=== PATIENT | female | born 1955 | race Caucasian/White ===

== ENCOUNTER 2020-03-06 03:03 | Outpatient (CLI) | payer OTHER, SELFPAY ==
[2020-03-06 18:16] LABS: SARS-CoV-2 RNA PCR Negative
== END 2020-03-06 03:04 | disposition home or self-care (01) ==
LOC: ANHCOVIDDT 03:03
PROVIDERS: PCP Family Medicine; Visit Provider Surgery
DX: Z01.812 Encounter for preprocedural laboratory examination (principal); Z20.828 Contact with and (suspected) exposure to other viral communicable diseases
CPT/HCPCS: 87635; C9803; U0003

== ENCOUNTER 2020-03-06 12:57 | Outpatient (CLI) | payer OTHER, SELFPAY ==
--- NOTE | 2020-03-06 12:59 | ECG_ITS ---
Measurements Intervals O'Brien Rate: 81 P: 51 SC: 152 QRS: -21 QRSD: 87 T: 43 QT: 389 QTc: 454 Interpretive Statements SINUS RHYTHM VOLTAGE CRITERIA FOR LVH BORDERLINE R WAVE PROGRESSION, ANTERIOR LEADS MINIMAL Q WAVES- HIGH LATERAL LEADS BASELINE ARTIFACT- I, II, III, AVR BORDERLINE ECG Electronically Signed On 03-06-2020 13:45:50 CDT by Edinson Balke D.O.
[2020-03-06 13:42] LABS: Alanine Aminotransferase 66 U/L (4-35); Albumin Level 4.7 g/dL (3.5-5.1); Alkaline Phosphatase 70 U/L (38-126); Amylase 60 U/L (30-110); Anion Gap 11 mmol/L (8-16); Aspartate Amino Transferase 42 U/L (14-36); Bilirubin,Total 0.3 mg/dL (0.2-1.3); Blood Urea Nitrogen 18 mg/dL (7-17); Calcium 9.6 mg/dL (8.4-10.2); Carbon Dioxide 29 mmol/L (22-30); Chloride 102 mmol/L (98-107); Estimated Glomerular Filt Rate > 60; Glucose 134 mg/dL (65-105); Lipase 135 U/L (23-300); Potassium 4.2 mmol/L (3.4-5.0); Sodium 142 mmol/L (137-145)
== END 2020-03-06 12:58 | disposition home or self-care (01) ==
LOC: ANHSURGERY 12:59
PROVIDERS: PCP Family Medicine; Visit Provider Surgery
DX: K81.1 Chronic cholecystitis (principal); Z01.818 Encounter for other preprocedural examination
CPT/HCPCS: 36415; 80053; 82150; 82248; 83690; 86850; 86900; 86901; 93005

== ENCOUNTER 2020-03-08 00:29 | Day surgery (SDC) | payer OTHER, SELFPAY ==
[2020-03-05 10:37] VITALS: BMI 27.3
--- NOTE | 2020-03-07 14:25 | WPDANESEPPF ---
Anes - Initial Pre Proc Eval Procedure: Operation Date: 03/08/20 10:30 Proposed Procedures p Laparoscopic Cholecystectomy - Archie Kelelr MD Date/Time: 03/07/20 14:25 Surgeon: Archie Keller MD Pre Op Diagnosis: Chronic Cholecystitis, Gallbladder polyps Patient Data Age: 65 Gender: F Height: 1.57 m Weight: 68 kg Allergies Allergy/AdvReac Type Severity Reaction Status Date / Time Penicillins Allergy Severe hives Verified 03/08/20 08:28 rosuvastatin AdvReac Unknown severe Verified 03/08/20 08:28 muscle and bone pain Home Medications Medication Instructions Recorded Confirmed Type cinnamon bark [Cinnamon] 500 mg PO DAILY 05/02/19 03/08/20 History turmeric 400 mg PO DAILY 05/02/19 03/08/20 History cholecalciferol (vitamin D3) 25 mcg PO DAILY 03/05/20 03/08/20 History [Vitamin D3] melatonin 10 mg PO HS PRN 03/05/20 03/08/20 History hydrocodone-acetaminophen 1 - 2 tablet PO Q6H PRN #7 tablet 03/08/20 Rx ketorolac 10 mg PO Q6H 4 Days #16 tablet 03/08/20 Rx Patient hx anesthesia problems: none Family hx anesthesia problems: none PMFSH Past Medical History Medical History (Updated 03/08/20 @ 06:38 by Archie Keller MD) Mitral valve prolapse Osteoarthritis Vitamin D deficiency, unspecified (01/17/18) Surgical History Surgical History Hx of lipoma Excision of neck lipoma Family History Family History Father Hypertension CAD (coronary artery disease) Mother Heart disease Hypertension Social History Social History Smoking status: Never smoker Alcohol intake: current Alcohol use details: RARELY DRINKS ALCOHOL Substance use: never Living arrangements: with family Gender identity (if verbalized by the patient): Female Spiritual care concerns: No Anes - Eval Final PreProcedure Day of Procedure 03/07/20 14:25 Patient weight: overweight Heart: regular rate and rhythm Lungs: clear to auscultation and normal air movement Airway: Mallampati scale class II Neurological: alert and oriented Last oral intake: >/= 8 hours ASA classification: II Emergent: no Anesthetic plan: proceed Anesthesia type and monitoring: general ETT and standard monitoring Informed Consent: The patient's anesthetic plan and its attendant risks and benefits were discussed with the patient/family/POA. Questions were solicited and answers provided to the satisfaction of the patient/family/POA.
[2020-03-08] VITALS (8 sets, daily range): BP systolic 106–133; BP diastolic 54–75; PULSE 59–75; RESP 14–20; TEMP 36.2–36.4; O2SAT 94–99
--- NOTE | 2020-03-08 06:35 | PM.SD ---
Same Day Admit/Disch: HPI History of Present Illness Chief complaint: Chronic Cholecystitis, Gallbladder polyps Narrative: Cecy Vale is a 65 year old female Who has had multiple episodes of postprandial right upper quadrant abdominal pain. These actually started back in May. She has changed to a low-fat diet with improvement. She had a gallbladder ultrasound in May which showed gallbladder neck polyps. She is felt to have chronic cholecystitis and is taken to surgery now for laparoscopic cholecystectomy. [facility] Past Medical History Medical History Mitral valve prolapse Osteoarthritis Vitamin D deficiency, unspecified (01/17/18) Surgical History Surgical History Hx of lipoma Excision of neck lipoma Family History Family History Father Hypertension CAD (coronary artery disease) Mother Heart disease Hypertension Social History Social History Smoking status: Never smoker Alcohol intake: current Alcohol use details: RARELY DRINKS ALCOHOL Substance use: never Living arrangements: with family Gender identity (if verbalized by the patient): Female Spiritual care concerns: No Same Day Admit/Disch: Med Pre-admit Medications Home Medications Medication Instructions Recorded Confirmed Type cinnamon bark [Cinnamon] 500 mg PO DAILY 05/02/19 03/08/20 History turmeric 400 mg PO DAILY 05/02/19 03/08/20 History cholecalciferol (vitamin D3) 25 mcg PO DAILY 03/05/20 03/08/20 History [Vitamin D3] melatonin 10 mg PO HS PRN 03/05/20 03/08/20 History hydrocodone-acetaminophen 1 - 2 tablet PO Q6H PRN #7 tablet 03/08/20 Rx ketorolac 10 mg PO Q6H 4 Days #16 tablet 03/08/20 Rx Exam Const: General: comfortable, no acute distress, alert and awake HENMT: Head: normocephalic and atraumatic Mouth: Yes Normal oral and palatal mucosa present Eyes: Conjunctivae: conjunctivae normal Pupils: Equal, round and reactive pupils present EOM: EOMs intact bilaterally Neck: Neck: normal visual inspection, no lymphadenopathy and nontender Resp: Effort & Inspection: normal respiratory effort Auscultation: clear to auscultation bilaterally Cardio: Rate: regular rate Rhythm: regular rhythm Heart sounds: no gallops, no murmurs and no rubs GI: Inspection: non-distended GI Palp: Yes Soft to palpation, No Tenderness to palpation present (GI), No Hepatomegaly present and No Splenomegaly present Skin: Lesions: no lesions Rashes: no rashes Neuro: General: no focal motor deficits and CN's II-XI intact bilaterally Cranial nerves: Yes Equal, round and reactive pupils present, Yes Bilaterally intact EOM present, Yes facial symmetry and Yes Midline tongue present Speech: normal speech Motor exam (neuro): 5/5 motor strength present throughout and Motor abnormalities not present Extrem: General: no clubbing, cyanosis or edema and edema Psych: Affect: normal affect Thought process: Normal thought process present Insight: Good insight present (Psych) DS: Summary Time Spent with Patient Time attestation: Total time spent providing and/or coordinating discharge services: DS: Admitting Diagnosis Admitting Diagnosis Admitting Diagnosis: Chronic Cholecystitis-- plan to proceed with laparoscopic cholecystectomy today under general anesthesia as an outpatient. The procedure the risks the benefits have been discussed. All questions were answered. She understands and agrees to go ahead. DS: Discharge Diagnosis Discharge Diagnosis (1) Chronic cholecystitis: Code(s): K81.1 - Chronic cholecystitis Status: Chronic (2) Gallbladder polyp: Code(s): K82.4 - Cholesterolosis of gallbladder Status: Chronic Discharge Plan Discharge Patient Disposition:
--- NOTE | 2020-03-08 06:40 | P.OP_ITS ---
Procedure Note - Detailed Date of procedure: 03/08/20 Pre-op diagnosis: Chronic Cholecystitis, Gallbladder polyps chronic cholecystitis, gallbladder polyps Post-op diagnosis: same Procedure performed: Laparoscopic cholecystectomy Description of procedure: The patient was taken to surgery and induced into general anesthesia. The abdomen was prepped and draped. Trocars were placed in the usual fashion using 0.5% Marcaine with epinephrine and applied Medical optical trocars. A 5 millimeter camera was used. The gallbladder was decompressed with a laparoscopic aspirator. The cholecystotomy was closed with a Vicryl endo-loop. The gallbladder was retracted anterosuperiorly. Adhesions to the gallbladder were taken down so that the cholecystohepatic triangle was exposed. Traction was placed on the infundibulum. The cystic duct and cystic artery were dissected out very clearly. The gallbladder was dissected off the liver at its lower 3rd. Critical view was achieved. We securely clipped and divided the cystic duct. The cystic artery was diminutive and was cauterized and divided. The gallbladder was then further retracted so that the peritoneal attachments to the liver could be divided. Once the gallbladder was freed entirely, it was placed in an Endo- Catch bag and retrieved through the 10 11 epigastric trocar site. The epigastric trocar was then replaced. We reviewed the right upper quadrant. All looked good with no evidence of bleeding or bile leakage. We evacuated CO2 and removed the trocar sleeves. Skin wounds were closed with subcuticular 4 O Monocryl skin suture. The wounds were dressed with Exofin surgical adhesive. Patient was awakened and taken to recovery in good condition. Sponge and needle counts were correct x2. Anesthesia: GETA and local (0.5% Marcaine with epinephrine) Surgeon: Archie Keller MD Grounds And Nursery Specialist: Gatito PENDLETON Estimated blood loss (mL): 5 Drains: No Packing: No Pathology: yes (Gallbladder) Complications: None Condition: stable Disposition: PACU Findings: Mild chronic inflammation, no gallstones noted. No biliary ductal dilatation, no liver abnormalities.
--- NOTE | 2020-03-08 06:42 | WPDHPUPDATE1 ---
History and Physical Update Update Date/Time: 03/08/20 06:42 History and Physical has been reviewed, including an updated exam of the patient. There are NO changes in the patient's condition. Risks, benefits, and alternatives have been discussed and questions answered. Patient agrees to proceed with procedure.
[2020-03-08] MEDS: ACETAMINOPHEN 500 MG TABLET 1000 MG PO (08:36)
[2020-03-08] MEDS: LACTATED RINGERS 1,000 ML 30 ML IV CONT ×2 (08:52→11:43)
[2020-03-08] MEDS: KETOROLAC 15 MG/ML VIAL (*BKC) IV PUSH (08:54)
--- NOTE | 2020-03-08 10:02 | SUR.PREOP ---
Up to bathroom.
[2020-03-08] MEDS: CLINDAMYCIN 900 MG/NS 50 ML 900 MG/50 ML PIGGYBACK 50 MG IVPB (10:40)
[2020-03-08] MEDS: BUPIVACAINE/EPINEPHRINE 0.5% 10 ML VIAL 20 ML INFILTRATE (11:35)
--- NOTE | 2020-03-08 13:07 | SUR.PHASEII ---
PT AWAKE AND ALERT. DENIES PAIN OR NAUSEA. EATING CRACKERS AND DRINKING WHITE SODA.
--- NOTE | 2020-03-08 13:28 | SUR.PHASEII ---
PT AWAKE AND ALERT. READY TO GO HOME
== END 2020-03-08 13:43 | disposition home or self-care (01) ==
PROVIDERS: PCP Family Medicine; Visit Provider Surgery
PROC: 0FT44ZZ Resection of Gallbladder, Percutaneous Endoscopic Approach (ICD-10-PCS; CPT 47562; principal; 2020-03-08 10:30)
DX: K81.1 Chronic cholecystitis (principal); I34.1 Nonrheumatic mitral (valve) prolapse; E55.9 Vitamin D deficiency, unspecified; M19.90 Unspecified osteoarthritis, unspecified site
CPT/HCPCS: 47562; 88304; A9270; C1713; J0330; J1885; J2250; J2370; J2405; J2704; J2710; J3010; J7120

== ENCOUNTER 2021-01-24 16:32 | Outpatient (CLI) | payer OTHER, SELFPAY ==
--- NOTE | ~2021-01-24 | MM_ITS ---
EXAMINATION: MM screening [facility] BI [facility] [place] HISTORY: Screening mammogram TECHNIQUE: Craniocaudal and mediolateral oblique 3-D tomosynthesis images were obtained and synthetic 2-D images were generated. CAD analysis was submitted and interpreted. COMPARISON: 04/11/2017, 11/03/2013 BREAST PARENCHYMAL COMPOSITION: There are scattered areas of fibroglandular density. FINDINGS: There is no evidence of suspicious mass, calcification, or architectural distortion to sugg est malignancy in either breast. There has been no suspicious interval change. IMPRESSION: 1. No mammographic evidence of malignancy. 2. Recommend routine screening mammography in one year. BI-RADS Category 1: Negative Reviewed, dictated and finalized at location A.
== END 2021-01-24 16:33 | disposition home or self-care (01) ==
LOC: ANHIMG 16:38
PROVIDERS: PCP Family Medicine; Visit Provider Family Medicine
DX: Z12.31 Encounter for screening mammogram for malignant neoplasm of breast (principal)
CPT/HCPCS: 77063; 77067

== ENCOUNTER → 2021-02-18 17:24 | Outpatient (CLI) | payer OTHER, SELFPAY ==
--- NOTE | ~2021-02-18 | XR_ITS ---
EXAMINATION: XR lumbar spine min 4V EXAM DATE: 02/18/2021 18:58 INDICATION: M54.5 - Low back pain . TECHNIQUE: Lumber spine frontal, lateral, bilateral oblique projections. Coned down frontal and lat eral L5-S1 lumbar projections for interpretation. Comparison is made to prior examination from 2009. FINDINGS: There is mild to moderate lumbar levoscoliosis. Mild to moderate L3-4 disc disease with 3 m m anterolisthesis. Mild disc disease at the other lumbar levels. The vertebral bodies are otherwise a ligned. Moderate mid and lower lumbar facet arthropathy. Mild aortic arterial sclerosis. Sacrum, sac roiliac joints, sacral arcuate lines are intact. IMPRESSION: 1. Mild to moderate lumbar levoscoliosis. 2. Moderate facet arthropathy. Reviewed, dictated and finalized at location B.
== END ==
PROVIDERS: PCP Family Medicine; Visit Provider Physician Assistant
DX: M47.816 Spondylosis without myelopathy or radiculopathy, lumbar region (principal); M41.9 Scoliosis, unspecified
CPT/HCPCS: 72110

== ENCOUNTER 2021-09-17 15:11 | Outpatient (CLI) | payer OTHER, SELFPAY ==
--- NOTE | ~2021-09-17 | DEXA_ITS ---
Bone Density Report Name: MARCIN BERMUDEZ Age: 66 Sex: Female Ethnicity: White Date of : 1955 Indication: osteopenia; height loss; prior fracture; postmenopausal Referring Provider: KEVIN GUTIERREZ Study: Bone densitometry was performed. Exam Date: September 17, 2021 Accession number: [id number] Bone Density: Region BMD T-score Z-score Classification AP Spine(L1-L4) 0.902 -1.3 0.6 Osteopenia Femoral Neck (Left) 0.547 -2.7 -1.1 Osteoporosis Total Hip (Left) 0.757 -1.5 -0.2 Osteopenia Femoral Neck (Right) 0.574 -2.5 -0.8 Osteoporosis Total Hip (Right) 0.773 -1.4 0.0 Osteopenia Total Hip Mean 0.765 -1.5 -0.1 Osteopenia World Health Organization criteria for BMD impression classify patients as: Normal (T-score at or above -1.0), Osteopenia (T-score between -1.0 and -2.5), or Osteoporosis (T-score at or below -2.5). 10-year Fracture Risk: FRAX not reported because: Some T-score for Spine Total or Hip Total or Femoral Neck at or below -2.5 Previous Exams: Region Exam Age BMD T-score BMD Change BMD Change Date g/cm2 vs Baseline vs Previous AP Spine (L1-L4) 09/17/2021 66 0.902 -1.3 0.029 (3.3%)* 0.029 (3.3%)* 01/12/2018 62 0.873 -1.6 Total Hip(Left) 09/17/2021 66 0.757 -1.5 -0.018 (-2.3%) -0.018 (-2.3%) 01/12/2018 62 0.775 -1.4 Total Hip(Right) 09/17/2021 66 0.773 -1.4 -0.025 (-3.2%) -0.025 (-3.2%) 01/12/2018 62 0.798 -1.2 *Denotes significance at 95% confidence level, LSC for AP Spine = 0.022 g/cm2, LSC for Total Hip = 0.027 g/cm2 Clinical Information Provided by Patient: Has had a low trauma fracture Has used the following medications: Vitamin D Patient maximum height was 62.5 Menopause Age: 44 Drinks caffeinated beverages Onset of menses at age 11 Number of children 2 Impression: The patient has established osteoporosis, based on the Left Femoral Neck T-score and the existence of a prior fracture. The patient has risk factors, including: previous fracture. No significant bone loss was observed. Discussion: HIGH RISK OF FRACTURE. BONE DENSITY IS UNDESIRABLY LOW AT ONE OR MORE SKELETAL SITES, CONSISTENT WITH POSTMENOPAUSAL OSTEOPOROSIS. This patient's lowest T-score, in a patient who has previously fractured, meets the World Health Organization's (WHO) criteria for severe osteoporosis. In untreated patients, the risk of osteoporotic fracture increases approximately two-fold for each 1.0 SD decrease in T-s
== END 2021-09-17 15:12 | disposition home or self-care (01) ==
PROVIDERS: PCP Family Medicine; Visit Provider Family Medicine
DX: M81.0 Age-related osteoporosis without current pathological fracture (principal); M85.88 Other specified disorders of bone density and structure, other site; E55.9 Vitamin D deficiency, unspecified; Z00.00 Encounter for general adult medical examination without abnormal findings; Z87.312 Personal history of (healed) stress fracture
CPT/HCPCS: 77080

== ENCOUNTER 2022-07-29 07:33 | Outpatient (CLI) | payer OTHER, SELFPAY ==
--- NOTE | ~2022-07-29 | MM_ITS ---
EXAMINATION: MM screening [facility] HISTORY: Screening mammogram TECHNIQUE: Craniocaudal and mediolateral oblique 3-D tomosynthesis images were obtained and synthetic 2-D images were generated. CAD analysis was submitted and interpreted. COMPARISON: 01/24/2021, 04/11/2017, 11/03/2013 bilateral screening mammogram examinations BREAST PARENCHYMAL COMPOSITION: There are scattered areas of fibroglandular density. FINDINGS: There is no evidence of suspicious mass, calcification, or architectural distortion to sugg est malignancy in either breast. There has been no suspicious interval change. IMPRESSION: 1. No mammographic evidence of malignancy. 2. Recommend routine screening mammography in one year. BI-RADS Category 1: Negative Reviewed, dictated and finalized at location A. NUT CANDY MAKER
== END 2022-07-29 07:34 | disposition home or self-care (01) ==
PROVIDERS: PCP Family Medicine; Visit Provider Family Medicine
DX: Z12.31 Encounter for screening mammogram for malignant neoplasm of breast (principal)
CPT/HCPCS: 77063; 77067

== ENCOUNTER 2023-05-11 08:06 | Day surgery (SDC) | payer OTHER, SELFPAY ==
[2023-03-19 13:43] VITALS: BMI 25.0
[2023-04-29 14:11] VITALS: BMI 29.1
[2023-05-11 09:21] VITALS: BP 173/80; PULSE 76; RESP 16; TEMP 37; O2SAT 98
--- NOTE | 2023-05-11 09:24 | P.HP_ITS ---
History of Present Illness History of Present Illness Consent: Risks, benefits, and alternatives have been discussed and questions answered. Patient agrees to proceed with procedure. Chief complaint: Z12.11 Screening Neoplasm of Colon Narrative: Cecy Vale is a 68 year old female Presents for screening colonoscopy. Patient has current weight appetite and bm are normal. patient denies abdominal pain. She has had no bleeding. Family history is noncontributory. Review of Systems Review of Systems: Review of systems noncontributory. [facility] Past Medical History Medical History Hallux rigidus, right foot Mitral valve prolapse Osteoarthritis Vitamin D deficiency, unspecified (01/17/18) Surgical History Surgical History Hx laparoscopic cholecystectomy 03/08/2020 Hx of lipoma Excision of neck lipoma Family History Family History Father Hypertension CAD (coronary artery disease) Mother Heart disease Hypertension Social History Social History Smoking status: Never smoker Alcohol intake: current Drinks per week: 0 Alcohol use details: PT STATES RARE, ONCE A MONTH OR LESS Substance use: never Substance use type: does not use Living arrangements: with family Gender identity (if verbalized by the patient): Female Spiritual care concerns: No Meds Home Medications and Allergies Home Medications Medication Instructions Recorded Confirmed Type cinnamon bark 500 mg capsule 500 mg PO DAILY 05/02/19 04/29/23 History (Cinnamon) turmeric 400 mg capsule 400 mg PO DAILY 05/02/19 04/29/23 History cholecalciferol (vitamin D3) 25 25 mcg PO DAILY 03/05/20 04/29/23 History mcg (1,000 unit) tablet (Vitamin D3) strfisoyxzqf-Hl-qtvr-minerals 1 tablet PO DAILY 07/18/20 04/29/23 History (Multiple Vitamin, Womens tablet) sodium,potassium,mag sulfates 17.5 See Rx Instructions PO .COMPLEX 04/29/23 Rx gram-3.13 gram-1.6 gram oral soln #354 mL (Suprep Bowel Prep Kit) Allergies Allergy/AdvReac Type Severity Reaction Status Date / Time Penicillins Allergy Severe hives Verified 05/11/23 09:21 cephalexin Allergy Mild Hives Verified 05/11/23 09:21 rosuvastatin AdvReac Unknown severe Verified 05/11/23 09:21 muscle and bone pain alendronate sodium AdvReac Joint Pain Verified 05/11/23 09:21 [From Fosamax] Exam Narrative: Physical exam reveals patent vital signs stable. HEENT exam is unremarkable. Patient is anicteric. Is are clear to auscultation and heart is without murmur or extra sounds. Abdomen bowel sounds are present soft nontender with no organomegaly. Digital external rectal exam is normal. Assessment and Plan Assessment and plan (1) Encounter for screening colonoscopy: Code(s): Z12.11 - Encounter for screening for malignant neoplasm of colon Status: Acute Assessment and Plan: Presents for screening colonoscopy. Appears to be at average risk for colon polyps.
[2023-05-11] MEDS: LACTATED RINGERS 1,000 ML 150 ML IV CONT (09:33)
--- NOTE | 2023-05-11 09:42 | WPDANESEPPF ---
Anes - Initial Pre Proc Eval Procedure: Operation Date: 05/11/23 10:30 Proposed Procedures p Screening Colonoscopy - Gatito Car MD Date/Time: 05/11/23 09:42 Surgeon: Gatito Car MD Pre Op Diagnosis: Z12.11 Screening Neoplasm of Colon Patient Data Age: 68 Gender: F Height: 1.55 m Weight: 71.1 kg Last Vital Signs Temp 37.0 C 05/11/23 09:21 Pulse 76 05/11/23 09:21 Resp 16 05/11/23 09:21 BP 173/80 H 05/11/23 09:21 Pulse Ox 98 05/11/23 09:21 O2 Del Method Room Air 05/11/23 09:21 Allergies Allergy/AdvReac Type Severity Reaction Status Date / Time Penicillins Allergy Severe hives Verified 05/11/23 09:21 cephalexin Allergy Mild Hives Verified 05/11/23 09:21 rosuvastatin AdvReac Unknown severe Verified 05/11/23 09:21 muscle and bone pain alendronate sodium AdvReac Joint Pain Verified 05/11/23 09:21 [From Fosamax] Home Medications Medication Instructions Recorded Confirmed Type cinnamon bark 500 mg capsule 500 mg PO DAILY 05/02/19 04/29/23 History (Cinnamon) turmeric 400 mg capsule 400 mg PO DAILY 05/02/19 04/29/23 History cholecalciferol (vitamin D3) 25 25 mcg PO DAILY 03/05/20 04/29/23 History mcg (1,000 unit) tablet (Vitamin D3) vogncqfcouei-Aw-ptdi-minerals 1 tablet PO DAILY 07/18/20 04/29/23 History (Multiple Vitamin, Womens tablet) sodium,potassium,mag sulfates 17.5 See Rx Instructions PO .COMPLEX 04/29/23 Rx gram-3.13 gram-1.6 gram oral soln #354 mL (Suprep Bowel Prep Kit) Patient hx anesthesia problems: none Family hx anesthesia problems: none Results Review: All pre-operative results and documents have been reviewed as part of the pre-operative evaluation. REPLACED BY [facility] Past Medical History Medical History Hallux rigidus, right foot Mitral valve prolapse Osteoarthritis Vitamin D deficiency, unspecified (01/17/18) Surgical History Surgical History Hx laparoscopic cholecystectomy 03/08/2020 Hx of lipoma Excision of neck lipoma Family History Family History Father Hypertension CAD (coronary artery disease) Mother Heart disease Hypertension Social History Social History Smoking status: Never smoker Alcohol intake: current Drinks per week: 0 Alcohol use details: PT STATES RARE, ONCE A MONTH OR LESS Substance use: never Substance use type: does not use Living arrangements: with family Gender identity (if verbalized by the patient): Female Spiritual care concerns: No Anes - Eval Final PreProcedure Day of Procedure 05/11/23 09:42 Patient weight: overweight Heart: regular rate and rhythm Lungs: clear to auscultation Airway: Mallampati scale class II Neurological: alert and oriented Last oral intake: >/= 8 hours ASA classification: II Emergent: no Anesthetic plan: proceed Anesthesia type and monitoring: general GIVS and standard monitoring Results Review: All pre-operative results and documents have been reviewed as part of the pre-operative evaluation. Informed Consent: The patient's anesthetic plan and its attendant risks and benefits were discussed with the patient/family/POA. Questions were solicited and answers provided to the satisfaction of the patient/family/POA.
[2023-05-11 10:06] VITALS: BP 126/69; PULSE 69; RESP 20; O2SAT 97
[2023-05-11 10:16] VITALS: BP 122/76; PULSE 66; RESP 16; O2SAT 99
--- NOTE | 2023-05-11 10:17 | WPDANESPN ---
Anes - Prog Note Post-Op Date/Time: 05/11/23 10:17 Cardiovascular status: normal Respiratory status: normal Airway patency: baseline Mental status: baseline Post-Op hydration status: normal Vital Signs: Last Vital Signs Temp 37.0 C 05/11/23 09:21 Pulse 69 05/11/23 10:09 Resp 20 05/11/23 10:09 BP 126/69 05/11/23 10:09 Pulse Ox 97 05/11/23 10:09 O2 Del Method Room Air 05/11/23 10:09 Pain Score (VAS): 0/10 I/O: Intake & Output 05/10/23 05/11/23 05/11/23 23:59 07:59 15:59 Intake Total 300 Balance 300 Patient Feedback: Patient satisfied with anesthetic care.
[2023-05-11 10:26] VITALS: BP 125/66; PULSE 66; RESP 15; O2SAT 98
== END 2023-05-11 10:47 | disposition home or self-care (01) ==
PROVIDERS: PCP Family Medicine; Visit Provider Internal Medicine Gastroenterology
PROC: 0DJD8ZZ Inspection of Lower Intestinal Tract, Via Natural or Artificial Opening Endoscopic (ICD-10-PCS; CPT 45378; principal; 2023-05-11 10:30)
DX: Z12.11 Encounter for screening for malignant neoplasm of colon (principal); K64.8 Other hemorrhoids
CPT/HCPCS: 45378

== ENCOUNTER 2024-05-16 09:21 | Outpatient (CLI) | payer OTHER, SELFPAY ==
--- NOTE | ~2024-05-16 | XR_ITS ---
[id number] Ordering provider: Jose Aguilar APRN History: . M25.562 - Pain in left knee . Comparison: None. FINDINGS: BONES: No acute fracture or dislocation. JOINT SPACES: Normal. SOFT TISSUES: Normal. IMPRESSION: No acute osseous abnormality left knee. Reviewed, dictated and finalized at location A. ER EXTRUSION MACHINE OPERATOR
--- NOTE | ~2024-05-16 | XR_ITS ---
[id number] Ordering provider: Jose Aguilar APRN History: . M25.561 - Pain in right knee . Comparison: None. FINDINGS: BONES: No acute fracture or dislocation. JOINT SPACES: Normal. SOFT TISSUES: Normal. IMPRESSION: No acute osseous abnormality right knee. Reviewed, dictated and finalized at location A. ECTIONS NURSE
--- NOTE | ~2024-05-16 | XR_ITS ---
XR hand LT 2V Ordering provider: Jose Aguilar APRN History: . M79.642 - Pain in left hand . Comparison: None. FINDINGS: BONES: No acute fracture or dislocation. JOINT SPACES: Osteoarthritic changes of the first carpometacarpal joint. SOFT TISSUES: Unremarkable. IMPRESSION: No acute osseous abnormality left hand. Reviewed, dictated and finalized at location A. OLEER PACKER
== END 2024-05-16 09:22 | disposition home or self-care (01) ==
LOC: GOSHIMG 09:22
PROVIDERS: PCP Family Medicine; Visit Provider Student in an Organized Health Care Education/Training Program
DX: M25.562 Pain in left knee (principal); M25.561 Pain in right knee; M79.642 Pain in left hand
CPT/HCPCS: 73120; 73560

== ENCOUNTER 2024-06-08 13:52 | Outpatient (CLI) | payer OTHER, SELFPAY ==
--- NOTE | ~2024-06-08 | MM_ITS ---
EXAMINATION: MM screening [facility] BI w [facility] HISTORY: Screening TECHNIQUE: Craniocaudal and mediolateral oblique 3-D tomosynthesis images were obtained and synthetic 2-D images were generated. CAD analysis was submitted and interpreted. COMPARISON: Comparison to multiple prior studies sequentially, with oldest reviewed study dated 04/01. BREAST PARENCHYMAL COMPOSITION: Not dense: There are scattered areas of fibroglandular density. FINDINGS: There is a low-density asymmetry superiorly in the right breast partially obscured by fibro glandular content. This is not confirmed on the CC view. The left breast is stable without evidence f or malignancy. IMPRESSION: 1. Focal right breast asymmetry superiorly in the right breast on MLO view. 2. Additional mammographic views and possible breast ultrasound are recommended. BI-RADS Category 0: Incomplete: Needs additional imaging evaluation. Reviewed, dictated and finalized at location B. LE BUSINESS INTELLIGENCE DEVELOPER IMPRESSION: 1. Focal right breast asymmetry superiorly in the right breast on MLO view. 2. Additional mammographic views and possible breast ultrasound are recommended . BI-RADS Category 0: Incomplete: Needs additional imaging evaluation.
== END 2024-06-08 13:53 | disposition home or self-care (01) ==
LOC: ANHIMG 13:54
PROVIDERS: PCP Family Medicine; Visit Provider Family Medicine
DX: Z12.31 Encounter for screening mammogram for malignant neoplasm of breast (principal); R92.8 Other abnormal and inconclusive findings on diagnostic imaging of breast
CPT/HCPCS: 77063; 77067

== ENCOUNTER 2024-06-13 08:16 | Outpatient (CLI) | payer OTHER, SELFPAY ==
--- NOTE | ~2024-06-13 | MM_ITS ---
EXAMINATION: MM diagnostic [facility] RT w [place] HISTORY: Right breast mass TECHNIQUE: Additional 3-D tomosynthesis images of the right breast were performed and synthetic 2-D i mages were generated. CAD analysis was submitted and interpreted. COMPARISON: 06/08/2024 BREAST PARENCHYMAL COMPOSITION:Not Dense. There are scattered areas of fibroglandular density. FINDINGS: Marker was placed at the right breast, which corresponds with the nodular asymmetry at the upper right breast. This persists on spot compression views. No other mass or distortion seen. No nimo picious mammographic ossification. IMPRESSION: Nodular asymmetry of the right breast corresponds with a skin mole. No evidence for malignancy. BI-RADS Category 2: Benign finding(s). Reviewed, dictated and finalized at location . C WEB DEVELOPER
== END 2024-06-13 08:17 | disposition home or self-care (01) ==
LOC: MICIMG 08:17
PROVIDERS: PCP Family Medicine; Visit Provider Family Medicine
DX: R92.8 Other abnormal and inconclusive findings on diagnostic imaging of breast (principal)
CPT/HCPCS: 77061; 77065; G0279

== ENCOUNTER 2024-07-22 10:30 | Outpatient (RCR) | payer OTHER, SELFPAY ==
--- NOTE | 2024-06-21 10:57 | OPREHPOC ---
Outpatient Therapy Plan of Care This is a Multidisciplinary Plan of Care that may contain components documented by all disciplines (PT, OT, and ST.) PT Problem 1 PT Problem #1 Knowledge Deficit PT Goal 1 Goal / Goal Update [place] with HEP Target Visit 4 PT Goal 2 Goal / Goal Update Report no pain greater than 2/10 for 2 weeks Target Visit 8 PT Problem 2 PT Problem #2 Impaired Range of Motion PT Goal 1 Goal / Goal Update 1. Achieve 10+ degree of ashleigh hip extension for improved terminal stance of gait 2. Achieve 10+ degree of ashleigh ankle dorsiflexion for improved terminal stance of gait Target Visit 8 PT Problem 3 PT Problem #3 Impaired Strength PT Goal 1 Goal / Goal Update Improve ashleigh hip abduction strength to 4/5 to improve lateral stability with gait and transfers Target Visit 8 PT Problem 4 PT Problem #4 Impaired Gait PT Goal 1 Goal / Goal Update Patient will ambulate with even stride length bilaterally Target Visit 8
--- NOTE | 2024-06-21 10:57 | PTOPEVAL1 ---
Assessment and note entered by Sadiq Posey, PT Evaluation Information Assessment Status Evaluation ICD-10 Condition Codes (PT) Pain in right knee M25.561,Pain in left knee M25. 562 Onset May 2024 Subjective Information Reports that she was having a lot of trouble in May with ashleigh knees and tenderness. She likes to walk and when she gets on the treadmill. She never had swelling or warmness or injury that she knows of. She did a lot of ladder work around [place]. Reports that she is currently having some pain in her right hip as well. She is traditionally a right side sleeper. She gets pain throughout the night. She would like to return to walking on treadmill for exercise. Reported Pain Level Pain Score 1: Self Report Assessment PT Clinical Summary Patient presents with poor hip strength and mobility. She also presents with gastrocnemius tightness with shortened stride with gait pattern and trunk shift. Structurally, her knees appear to be in good condition, but the ankle and hip mobility limitations are likely increasing stress on knee joint motion and causing patellar tracking issues. Patient will benefit from skilled therapy to address these deficits and improve mobility, gait and hip/core strength. Plan of Care Interventions Electrical Stimulation,Gait Training,Hot Pack/Cold Pack,Manual Therapy,Neuro Re-education, Therapeutic Activities,Therapeutic Exercise PT Services Indicated Yes Treatment Frequency and 2x/week for 8 visits Duration These treatments will address the objective and functional deficits as defined above. The patient will be advanced safely and appropriately in order for the patient to progress towards his/her prior level of function. Additional exercises will be introduced and as well as a comprehensive home exercise program upon discharge, if needed, ?to ensure carryover of functional gains achieved in the clinic. This treatment plan has been reviewed and agreement upon by the patient.
--- NOTE | 2024-07-22 11:23 | PTOPDC ---
Assessment and note entered by Sadiq Posey, PT Evaluation Information Assessment Status Discharge ICD-10 Condition Codes (PT) Pain in right knee M25.561,Pain in left knee M25. 562 Onset May 2024 Subjective Information Reports that overall she has been doing better. She had some minor pain in the knee and hip last night but it was short lived. Feels comfortable currently with her HEP and feels that she has seen significant improvement. Reported Pain Level Pain Score 0: Self Report Pain Score 0: Self Report Assessment PT Clinical Summary Patient has seen significant improvement in all objective measures this date. Overall pain has been improved, gait has seen even progression, and strength is improved. She will continue to benefit from independent performance of HEP to continue to work on knee and hip stability. Plan of Care PT Services Indicated Yes
== END 2024-07-25 10:00 | disposition home or self-care (01) ==
LOC: ANHGOSHPT 10:30
PROVIDERS: PCP Family Medicine; Visit Provider Student in an Organized Health Care Education/Training Program
DX: M25.562 Pain in left knee (principal); M25.561 Pain in right knee
CPT/HCPCS: 97110; 97161; 97530

== ENCOUNTER 2024-09-16 13:39 | Outpatient (CLI) | payer OTHER, SELFPAY ==
--- NOTE | ~2024-09-16 | DEXA_ITS ---
Bone Density Report Name: MARCIN BERMUDEZ Age: 69 Sex: Female Ethnicity: White Date of : 1955 Indication: osteopenia; height loss; inflammatory bowel disease; Referring Provider: KEVIN GUTIERREZ Study: Bone densitometry was performed. Exam Date: September 16, 2024 Accession number: [id number] Bone Density: Region BMD T-score Z-score Classification AP Spine(L1-L4) 0.877 -1.5 0.6 Osteopenia Femoral Neck (Left) 0.532 -2.9 -1.0 Osteoporosis Total Hip (Left) 0.749 -1.6 -0.1 Osteopenia Femoral Neck (Right) 0.512 -3.0 -1.2 Osteoporosis Total Hip (Right) 0.774 -1.4 0.2 Osteopenia Total Hip Mean 0.762 -1.5 0.1 Osteopenia World Health Organization criteria for BMD impression classify patients as: Normal (T-score at or above -1.0), Osteopenia (T-score between -1.0 and -2.5), or Osteoporosis (T-score at or below -2.5). 10-year Fracture Risk: FRAX not reported because: Some T-score for Spine Total or Hip Total or Femoral Neck at or below -2.5 Previous Exams: Region Exam Age BMD T-score BMD Change BMD Change Date g/cm2 vs Baseline vs Previous AP Spine (L1-L4) 09/16/2024 69 0.877 -1.5 0.004 (0.4%) -0.025 (-2.7%) 09/17/2021 66 0.902 -1.3 0.029 (3.3%)* 0.029 (3.3%)* 01/12/2018 62 0.873 -1.6 Total Hip(Left) 09/16/2024 69 0.749 -1.6 -0.026 (-3.4%) -0.008 (-1.1%) 09/17/2021 66 0.757 -1.5 -0.018 (-2.3%) -0.018 (-2.3%) 01/12/2018 62 0.775 -1.4 Total Hip(Right) 09/16/2024 69 0.774 -1.4 -0.024 (-3.0%) 0.002 (0.2%) 09/17/2021 66 0.773 -1.4 -0.025 (-3.2%) -0.025 (-3.2%) 01/12/2018 62 0.798 -1.2 *Denotes significance at 95% confidence level, LSC for AP Spine = 0.022 g/cm2, LSC for Total Hip = 0.027 g/cm2 Clinical Information Provided by Patient: Has used the following medications: Fosamax (i.e. alendronate), Vitamin D, Calcium Has the following medical conditions: Inflammatory bowel diseases Patient maximum height was 62 Menopause Age: 44 Drinks caffeinated beverages Onset of menses at age 11 Number of children 2 Impression: The patient has osteoporosis, based on the Right Femoral Neck T-score. The BMD for the AP Spine (L1-L4) decreased, changing by -2.7% since the last DXA exam. Discussion: INCREASED RISK OF FRACTURE. BONE DENSITY IS UNDESIRABLY LOW AT ONE OR MORE SKELETAL SITES, CONSISTENT WITH POSTMENOPAUSAL OSTEOPOROSIS. This patient's lowest T-score meets the World Health Organization's (WHO) criteria for osteoporosis at one or more sites (T-score -2.5 or below). In untreated patients, the risk of osteoporotic fracture increases approximately two-fold for each 1.0 SD decrease in T-score. Low bone density is not the only risk factor for fracture; also consider factors such as patient's age, frailty or poor health, risk of falling, risk of injury, previous osteoporotic fracture, family history of osteoporosis, cigarette smoking, low body weight, etc. Not everyone with low bone mineral density has osteoporosis; osteomalacia and other metabolic bone disorders should also be considered. Patients who have osteoporosis should be evaluated for specific diseases and conditions (secondary causes) that may cause or contribute to bone loss. The [place] [employer]ocrinologists (AACE) and National Osteoporosis Foundation (NOF) recommend pharmacologic intervention for all postmenopausal women whose T-score is in this range. The patient should follow a healthful lifestyle (good nutrition with adequate calcium and vitamin D, and appropriate weight-bearing exercise). Follow-Up: Consider a repeat BMD and Vertebral Fracture Assessment (VFA) exam in 2 years or sooner if medically necessary, to reassess this patient's status. Reported by: MARYSE on 09/16/2024 2:21:00 PM. Reviewed, dictated and finalized at location [facility]
--- OUTSIDE RECORDS SUMMARY | 2024-09-16 13:44 | XMS_ITS | Referral Summary ---
Author Organization [facility] Address [address] [place] [address] Care Team Providers Care Wall Taper Name Role Phone Twyla Song MD Primary Care Provider + Encounters Date Type Department Care Team Description 08/21/2024 10:05 AM CDT - 08/23/2024 2:42 PM CDT Hospital Encounter [facility] [address] [place] [address] Akbar Mcdaniel MD Dehaan, MD Matheus Brown, Petra Gayle MD Perforation of sigmoid colon due to diverticulitis (Primary Dx); Sepsis due to coliform organism (HCC) [A41.59]; Primary hypertension [I10]; Metabolic acidemia [E87.20]; Anemia, unspecified type [D64.9] Discharge Disposition: Discharge to home or self care 08/22/2024 Telephone [facility] [address] [place] [address] Leilani Garza, OD from Last 3 Months Allergies Active Allergy Reactions Criticality Noted Date Comments Hydrocodone Hives,Nausea only High 08/09/2018 Penicillins Hives Medium Medications cholecalcifero l (VITAMIN D-3) 2,000 unit tabletIndicati ons:Osteoporos is,Vitamin D Deficiency Take 1 tablet (2,000 Units total) by mouth daily Active turmeric root extract 500 mg capsuleIndicat ions:Supplemen t Take 1 tablet by mouth daily Active cinnamon bark 500 mg capsuleIndicat ions:Supplemen t Take 1 capsule (500 mg total) by mouth daily Active naproxen (ANAPROX,ALEVE ) 220 mg tabletIndicati ons:Anti-infla mmatory,Pain Take 1 tablet (220 mg total) by mouth 2 (two) times a day as needed for pain Active BIOTIN ORALIndication s:Hair skin nails Take 1 tablet by mouth daily Active docosahexaenoi c acid/epa (FISH OIL ORAL)Indicatio ns:Supplement Take 1 tablet/capsule by mouth daily Active ezetimibe (ZETIA) 10 mg tablet Take 1 tablet (10 mg total) by mouth nightly Active losartan (COZAAR) 25 mg tablet Take 1 tablet (25 mg total) by mouth nightly Active pseudoephedrin e ER (SUDAFED) 120 mg 12 hr tabletIndicati ons:Nasal Congestion Take 1 tablet (120 mg total) by mouth daily as needed for congestion 08/22/19 25 Discontinu ed(Error) ciprofloxacin (CIPRO) 500 mg tabletIndicati ons:Abdominal/ Pelvic Infection Take 1 tablet (500 mg total) by mouth 2 (two) times a day for 10 doses 10 tablet 5 08/29/19 metroNIDAZOLE (FLAGYL) 500 mg tabletIndicati ons:Abdominal/ Pelvic Infection Take 1 tablet (500 mg total) by mouth 3 (three) times a day for 15 doses 15 tablet 5 08/29/19 Active Problems Problem Noted Date Diagnosed Date Anemia 08/23/2024 Perforation of sigmoid colon due to diverticulit is 08/22/2024 Metabolic acidemia 08/22/2024 Acute diverticulitis 08/21/2024 Sepsis due to coliform organism 08/21/2024 Primary hypertension 08/21/2024 Hypercholesterolemia 08/21/2024 Myogenic ptosis of eyelid of both eyes 3 Assessment & Plan (08/30/2023 8:47 PM CDT): Cecy Vale is doing well after Repair Ptosis; Bilateral Upper Lid - Bilateral on 07/03/2023. She demonstrates excellent healing and has been released from my care and will follow up as needed. She has been instructed to continue comprehensive eye care with Dr. Garza. Assessment & Plan (05/29/2023 10:03 PM [employer]): Bilateral upper eyelid ptosis with symptomatic visual obstruction. Risks, benefits and alternatives were discussed. Risks of surgery included but were not limited to pain, infection, bleeding, scarring, eyelid asymmetry, need for additional procedures, anesthetic morbidity. Following this discussion, the patient wishes to proceed with bilateral upper eyelid ptosis repair. We will schedule this in the near future. Peripheral visual field defect of both eyes 05/01 Dermatochalasis of both upper eyelids 02/28/2021 Assessment & Plan (04/02/2023 11:25 AM CDT): Visually sig, refer for oculoplastics eval Assessment & Plan (02/28/2021 4:43 PM CDT): Pt would like fu with Dr Berkowitz Glaucoma suspect of both eyes 10/27/2018 Assessment & Plan (04/05/2024 1:10 PM [employer]): Large phys CDR both eyes (OU) - normal/stable RNFL both eyes (OU) Acceptable intraocular pressure (IOP) both eyes (OU) Thick CCT ou Low risk, optic nerve (ON) oct 1 year Assessment & Plan (04/02/2023 11:19 AM CDT): Large phys CDR both eyes (OU) - normal/stable RNFL both eyes (OU) Acceptable intraocular pressure (IOP) both eyes (OU) Thick CCT ou Low risk, optic nerve (ON) oct 1 year Assessment & Plan (02/28/2021 4:42 PM CDT): Stable testing Assessment & Plan (10/27/2018 11:22 AM CDT): Normal RNFL both eyes (OU) Large physiololgic disc Thick CCT both eyes (OU) Full visual field (VF) both eyes (OU) Fam oc hx Age-related nuclear cataract of both eyes 2018 Assessment & Plan (04/05/2024 1:10 PM [employer]): NVS, monitor Assessment & Plan (04/02/2023 9:41 AM CDT): NVS, monitor Assessment & Plan (02/28/2021 4:43 PM CDT): NVS, monitor Assessment & Plan (10/27/2018 11:23 AM CDT): Not visually significant, monitor Lipoma of neck 06/25/2018 Overview (06/25/2018): Added automatically from request for surgery [id number] Heart murmur 10/17/2013 Social History Tobacco Use Types Packs/Day Years Used Date Smoking Tobacco: Never Passive Smoke Exposure: Past Smokeless Tobacco: Never Alcohol Use Standard Drinks/Week Comments No 0 (1 standard drink = 0.6 oz pur e alcohol) AUDIT-C Answer Date Recorded Q1: How often do you have a drink containing alcohol? Never 07/03/2023 Q2: How many drinks containi ng alcohol do you have on a typical day when you are drinking? Patient does not drink Q3: How often do you have si x or more drinks on one occasion? Never 07/03/2023 Personal Safety Answer Date Recorded Have you ever been in or are you currently in a harmful physical or emotional relationship or is someone making you feel afraid or unsafe? Denies 08/21/2024 Comments No Sex and Gender Information Value Date Recorded Sex Assigned at Not on file Legal Sex Female 12:28 PM [employer] Gender Identity Female 07/03/2023 8:53 AM [employer] Sexual Orientation Not on file Last Filed Vital Signs Vital Sign Reading Time Taken Comments Blood Pressure 158/73 08/23/2024 1:03 PM CDT Pulse 75 08/23/2024 1:03 PM CDT Temperature 37 C (98.6 F) 08/23/2024 1:03 PM CDT Respiratory Rate 18 08/23/2024 1:03 PM CDT Oxygen Saturation 98% 08/23/2024 1:03 PM CDT Inhaled Oxygen Concentration - - Weight 70.7 kg (155 lb 14.4 oz) 08/21/2024 3:15 PM CDT Height 154.9 cm (5' 1 ) 08/21/2024 3:15 PM CDT Body Mass Index 29.46 08/21/2024 3:15 PM CDT Plan of Treatment Not on file Procedures Procedure Name Priority Date/Time Associated Diagnosis Comments EGFR Routine 08/23/2024 12:33 AM CDT DIFFERENTIAL AUTO Routine 08/23/2024 12: 33 AM CDT CBC WITH AUTO DIFFERENTIAL Routine 08/23/2024 12:33 AM CDT MAGNESIUM Routine 08/23/2024 12:33 AM CDT RENAL FUNCTION PANEL Routine 08/23/2024 12:33 AM CDT POCT GLUCOSE DEVICE Routine 08/22/2024 1 2:44 PM CDT POCT GLUCOSE DEVICE Routine 08/22/2024 3 :01 AM CDT EGFR Routine 08/22/2024 12:53 AM CDT DIFFERENTIAL AUTO Routine 08/22/2024 12: 53 AM CDT PHOSPHORUS Routine 08/22/2024 12:53 AM CDT MAGNESIUM Routine 08/22/2024 12:53 AM CDT COMPREHENSIVE METABOLIC PANEL Routine 08/22/2024 12:53 AM CDT CBC WITH AUTO DIFFERENTIAL Routine 08/22/2024 12:[address] ABDOMEN PELVIS W CONTRAST ED 08/21/2024 11:21 AM CDT BLOOD CULTURE Routine 08/21/2024 10:59 AM CDT BLOOD CULTURE Routine 08/21/2024 10:59 AM CDT MANUAL DIFFERENTIAL STAT 08/21/2024 1 0:20 AM CDT EGFR STAT 08/21/2024 10:20 AM CDT TYPE AND SCREEN STAT 08/21/2024 10:20 AM CDT SEPSIS LACTATE WITH REFLEX STAT 08/21/2024 10:20 AM CDT COMPREHENSIVE METABOLIC PANEL STAT 08/21/2024 10:20 AM CDT CBC WITH AUTO DIFFERENTIAL STAT 08/21/2024 10:20 AM CDT ECG 12-LEAD STAT 08/21/2024 10:08 AM CDT from Last 3 Months Results * eGFR (08/23/2024 12:33 AM CDT) eGFR >90 >=60 mL/min/1. 73 m2 Comment: Interpretive Data Reference Interval Normal >/= 90 mL/min/1.73m2 Mildly decreased* 60 - 89 mL/min/1.73m2 Mildly to moderately decreased 45 - 59 mL/min/1.73m2 Moderately to severely decreased 30 - 44 mL/min/1.73m2 Severely decreased 15 - 29 mL/min/1.73m2 Kidney Failure < 15 mL/min/1.73m2 *Relative to young adult level Estimated glomerular filtration rate is determined by the 2020 CKD-EPI equation recommended by the National Kidney Foundation (A Unifying Approach to GFR Estimation: Recommendations of the NKF-ASK Task Force on Reassessing the Inclusion of Race in Diagnosing Kidney Disease, JASN 202). The CKD-EPI equation should not be used for patients with unstable renal function and has not been validated in children and those over 70. Current interpretive data was last reviewed 2021. Blood 08/23/2024 12:3 3 AM CDT 08/23/2024 1:29 AM CDT Petra Jarvis MD LAB BLOOD ORDERABLES Final Result [facility] [address] Department of Laboratories [place], [place] [id number] * (ABNORMAL) Differential, auto (08/23/2024 12:33 AM CDT) Neutrophil abs 5.6 1.5 - 6.5 K/cumm Imm gran abs 0.0 0.0 - 0.1 K/cumm [facility] Lymphocyte abs 2.4 0.8 - 3.3 K/cumm [facility] Monocyte abs 1.0(H) 0.2 - 0.8 K/cumm [facility] Eosinophil abs 0.1 0.0 - 0.5 K/cumm [facility] Basophil abs 0.1 0.0 - 0.1 K/cumm [facility] Neutrophil pct 60.7 % [facility] Comment: Interpretive Data Percent cell count reference ranges are not reported, since discordance with absolute values may lead to misinterpretation of CBC data. Current Interpretive Data was last revised on 2017. Imm gran pct 0.2 % [facility] Comment: Interpretive Data Percent cell count reference ranges are not reported, since discordance with absolute values may lead to misinterpretation of CBC data. Current Interpretive Data was last revised on 2017. Lymphocyte pct 26.2 % [facility] Comment: Interpretive Data Percent cell count reference ranges are not reported, since discordance with absolute values may lead to misinterpretation of CBC data. Current Interpretive Data was last revised on 2017. Monocyte pct 10.9 % [facility] Comment: Interpretive Data Percent cell count reference ranges are not reported, since discordance with absolute values may lead to misinterpretation of CBC data. Current Interpretive Data was last revised on 2017. Eosinophil pct 1.5 % [facility] Comment: Interpretive Data Percent cell count reference ranges are not reported, since discordance with absolute values may lead to misinterpretation of CBC data. Current Interpretive Data was last revised on 2017. Basophil pct 0.5 % [facility] Comment: Interpretive Data Percent cell count reference ranges are not reported, since discordance with absolute values may lead to misinterpretation of CBC data. Current Interpretive Data was last revised on 2017. Blood 08/23/2024 12:3 3 AM CDT 08/23/2024 1:29 AM CDT Petra Jarvis MD LAB BLOOD ORDERABLES Final Result Performing Organization Address City/[facility]/ZIP Co de Phone Number [facility] [address] [place] [address] * (ABNORMAL) CBC with auto differential (08/23/2024 12:33 AM CDT) WBC 9.3 3.8 - 9.9 K/cumm Hgb 11.3(L) 11.9 - 15.5 g/dL [facility] Hct 34.5(L) 35.6 - 45.5 % [facility] Plt 244 150 - 400 K/cumm [facility] MPV 11.3 9.1 - 12.[address] [facility] RBC 3.65(L) 3.90 - 5.20 M/cumm [facility] MCV 94.5 81.3 - 96.[address] [facility] MCH 31.0 27.1 - 33.[address] [facility] MCHC 32.8 32.3 - 35.7 g/dL [facility] RDW CV 13.0 11.1 - 14.9 % [facility] RDW SD 45.1 35.7 - 48.[address] [facility] NRBC abs 0.00 0.00 - 0.01 K/cumm [facility] Blood 08/23/2024 12:3 3 AM CDT 08/23/2024 1:29 AM CDT Petra Jarvis MD LAB BLOOD ORDERABLES Final Result Performing Organization Address [facility]/ZIP Co de Phone Number [facility] [address] Department [place] [employer] [place] [address] * Magnesium (08/23/2024 12:33 AM CDT) Magnesium 1.9 1.4 - 2.5 mg/dL Blood 08/23/2024 12:3 3 AM CDT 08/23/2024 1:29 AM CDT us Petra Jarvis MD LAB BLOOD ORDERABLES Final Result [facility] [address] Department [place] [address] * (ABNORMAL) Renal function panel (08/23/2024 12:33 AM CDT) Pathologist [facility] Sodium 144 135 - 145 mmol/L Potassium, pl 4.0 3.3 - 4.9 mmol/L [facility] Chloride 109 97 - 110 mmol/L [facility] CO2 21(L) 22 - 32 mmol/L [facility] Anion gap 14 2 - 15 mmol/L [facility] BUN 7 6 - 25 mg/dL [facility] Creatinine 0.53(L) 0.60 - 1.10 mg/dL [facility] Glucose 102 70 - 199 mg/dL [facility] Comment: Interpretive Data Fasting glucose >/= 126 mg/dl is diagnostic for diabetes. Fasting is defined as no caloric intake for at least 8 hours. Fasting glucose between 100 mg/dl to 125 mg/dl is diagnostic of prediabetes. In a patient with classic symptoms of hyperglycemia or hyperglycemic crisis, a random glucose >/= 200 mg/dl is diagnostic for diabetes. In the absence of unequivocal hyperglycemia, results should be confirmed by repeat testing. The classification and Diagnosis of Diabetes Diabetes Care 202; 46: S19-S40. Current interpretive data was last revised 2022. Calcium 8.6 8.5 - 10.3 mg/dL [facility] Phosphorus, pl 2.1(L) 2.3 - 4.5 mg/dL [facility] Albumin 3.5 3.5 - 5.0 g/dL [facility] Blood 08/23/2024 12:3 3 AM CDT 08/23/2024 1:29 AM CDT us Petra Jarvis MD LAB BLOOD ORDERABLES Final Result Performing Organization Address City/[facility]/ZIP Co de Phone Number [facility] [address] [facility] [employer] [place] [address] * POCT glucose (08/22/2024 12:44 PM CDT) Glucose, POC 96 70 - 199 mg/dL Comment: For Glucose values <35 mg/dl when Hematocrit is >60 mg/dl,the test may not accurately detect significant hypoglycemia,and testing in the Laboratory should be considered if clinically indicated. POC Performer [id number] [facility] Blood 08/22/2024 12:4 4 PM CDT 08/22/2024 12:44 PM CDT us Petra Jarvis MD LAB POCT ORDERABLES - HERMINIO CE Final Result Performing Organization Address [facility] Co de Phone Number [facility] [address] Department [place] [place] [address] * POCT glucose (08/22/2024 3:01 AM CDT) Glucose, POC 75 70 - 199 mg/dL Comment: For Glucose values <35 mg/dl when Hematocrit is >60 mg/dl,the test may not accurately detect significant hypoglycemia,and testing in the Laboratory should be considered if clinically indicated. POC Performer [id number] [facility] Blood 08/22/2024 3:01 AM CDT 08/22/2024 3:01 AM CDT us Dann Burns MD LAB POCT ORDERABLES - DE VICE Final Result Performing Organization Address [facility]/ZIP Co de Phone Number [facility] [address] [facility] [employer] [place] [address] * eGFR (08/22/2024 12:53 AM CDT) eGFR >90 >=60 mL/min/1. 73 m2 Comment: Interpretive Data Reference Interval Normal >/= 90 mL/min/1.73m2 Mildly decreased* 60 - 89 mL/min/1.73m2 Mildly to moderately decreased 45 - 59 mL/min/1.73m2 Moderately to severely decreased 30 - 44 mL/min/1.73m2 Severely decreased 15 - 29 mL/min/1.73m2 Kidney Failure < 15 mL/min/1.73m2 *Relative to young adult level Estimated glomerular filtration rate is determined by the 2020 CKD-EPI equation recommended by the National Kidney Foundation (A Unifying Approach to GFR Estimation: Recommendations of the NKF-ASK Task Force on Reassessing the Inclusion of Race in Diagnosing Kidney Disease, JASN 2020). The CKD-EPI equation should not be used for patients with unstable renal function and has not been validated in children and those over 70. Current interpretive data was last reviewed 2021. Blood 08/22/2024 12:5 3 AM CDT 08/22/2024 1:52 AM CDT us Dann Burns MD LAB BLOOD ORDERABLES Fin al Result [facility] [address] Department [place] [address] * (ABNORMAL) Differential, auto (08/22/2024 12:53 AM CDT) Neutrophil abs 7.7(H) 1.5 - 6.5 K/cumm Imm gran abs 0.1 0.0 - 0.1 K/cumm [facility] Lymphocyte abs 2.4 0.8 - 3.3 K/cumm [facility] Monocyte abs 1.2(H) 0.2 - 0.8 K/cumm [facility] Eosinophil abs 0.0 0.0 - 0.5 K/cumm [facility] Basophil abs 0.0 0.0 - 0.1 K/cumm [facility] Neutrophil pct 67.7 % [facility] Comment: Interpretive Data Percent cell count reference ranges are not reported, since discordance with absolute values may lead to misinterpretation of CBC data. Current Interpretive Data was last revised on 2017. Imm gran pct 0.4 % [facility] Comment: Interpretive Data Percent cell count reference ranges are not reported, since discordance with absolute values may lead to misinterpretation of CBC data. Current Interpretive Data was last revised on 2017. Lymphocyte pct 20.9 % [facility] Comment: Interpretive Data Percent cell count reference ranges are not reported, since discordance with absolute values may lead to misinterpretation of CBC data. Current Interpretive Data was last revised on 2017. Monocyte pct 10.3 % [facility] Comment: Interpretive Data Percent cell count reference ranges are not reported, since discordance with absolute values may lead to misinterpretation of CBC data. Current Interpretive Data was last revised on 2017. Eosinophil pct 0.4 % [facility] Comment: Interpretive Data Percent cell count reference ranges are not reported, since discordance with absolute values may lead to misinterpretation of CBC data. Current Interpretive Data was last revised on 2017. Basophil pct 0.3 % [facility] Comment: Interpretive Data Percent cell count reference ranges are not reported, since discordance with absolute values may lead to misinterpretation of CBC data. Current Interpretive Data was last revised on 2017. Blood 08/22/2024 12:5 3 AM CDT 08/22/2024 1:53 AM CDT us Dann Burns MD LAB BLOOD ORDERABLES Fin al Result [facility] [address] Department [place] [address] * (ABNORMAL) CBC with auto differential (08/22/2024 12:53 AM CDT) WBC 11.4(H) 3.8 - 9.9 K/cumm Hgb 11.5(L) 11.9 - 15.5 g/dL [facility] Hct 35.9 35.6 - 45.5 % [facility] Plt 224 150 - 400 K/cumm [facility] MPV 11.3 9.1 - 12.[address] [facility] RBC 3.77(L) 3.90 - 5.20 M/cumm [facility] MCV 95.2 81.3 - 96.[address] [facility] MCH 30.5 27.1 - 33.[address] [facility] MCHC 32.0(L) 32.3 - 35.7 g/dL [facility] RDW CV 13.4 11.1 - 14.9 % [facility] RDW SD 47.3 35.7 - 48.[address] [facility] NRBC abs 0.00 0.00 - 0.01 K/cumm [facility] Blood 08/22/2024 12:5 3 AM CDT 08/22/2024 1:53 AM CDT Dann Burns MD LAB BLOOD ORDERABLES Fin al Result Performing Organization Address City/[facility]/ZIP Co de Phone Number [facility] [address] Department [place] [employer] [place] [address] * Phosphorus (08/22/2024 12:53 AM CDT) Phosphorus, pl 2.8 2.3 - 4.5 mg/dL Blood 08/22/2024 12:5 3 AM CDT 08/22/2024 1:52 AM CDT Dann Burns MD LAB BLOOD ORDERABLES Fin al Result [facility] [address] Department [place] [employer] [place] [address] * Magnesium (08/22/2024 12:53 AM CDT) Magnesium 1.9 1.4 - 2.5 mg/dL Blood 08/22/2024 12:5 3 AM CDT 08/22/2024 1:52 AM CDT Dann Burns MD LAB BLOOD ORDERABLES Naveed madison Result [facility] [address] Department [place] [address] * (ABNORMAL) Comprehensive metabolic panel (08/22/2024 12:53 AM CDT) Sodium 138 135 - 145 mmol/L Potassium, pl 4.0 3.3 - 4.9 mmol/L [facility] Chloride 103 97 - 110 mmol/L [facility] CO2 20(L) 22 - 32 mmol/L [facility] Anion gap 15 2 - 15 mmol/L [facility] BUN 13 6 - 25 mg/dL [facility] Creatinine 0.59(L) 0.60 - 1.10 mg/dL [facility] Glucose 65(L) 70 - 199 mg/dL [facility] Comment: Interpretive Data Fasting glucose >/= 126 mg/dl is diagnostic for diabetes. Fasting is defined as no caloric intake for at least 8 hours. Fasting glucose between 100 mg/dl to 125 mg/dl is diagnostic of prediabetes. In a patient with classic symptoms of hyperglycemia or hyperglycemic crisis, a random glucose >/= 200 mg/dl is diagnostic for diabetes. In the absence of unequivocal hyperglycemia, results should be confirmed by repeat testing. The classification and Diagnosis of Diabetes Diabetes Care 202; 46: S19-S40. Current interpretive data was last revised 2022. Calcium 8.9 8.5 - 10.3 mg/dL [facility] Bilirubin, total 0.4 0.1 - 1.2 mg/dL [facility] Protein, pl 6.2(L) 6.5 - 8.5 g/dL [facility] Albumin 3.5 3.5 - 5.0 g/dL [facility] Alk phos 62 40 - 130 Units/L [facility] ALT 22 7 - 45 Units/L [facility] AST 18 10 - 45 Units/L [facility] Blood 08/22/2024 12:5 3 AM CDT 08/22/2024 1:52 AM CDT Dann Burns MD LAB BLOOD ORDERABLES Naveed al Result [facility] [address] Department [place] [address] * CT Abdomen Pelvis W Contrast (08/21/2024 11:21 AM CDT) Anatomical Region Laterality Modality Body N/A Computed Tomogra phy 08/21/2024 11:4 8 AM CDT Impressions 08/21/2024 11:48 AM CDT Findings of perforated sigmoid diverticulitis with some tethering and thickening of adjacent small bowel loops to the surrounding inflammatory change. Foci of adjacent gas most consistent represent microperforation. Colonoscopy is recommended following resolution of acute process to exclude an underlying mass. Electronically signed by: Sudha Weston M.D. Narrative 08/21/2024 11:48 AM CDT EXAMINATION: Computed tomography of the abdomen and pelvis with intravenous contrast HISTORY: Abdominal pain TECHNIQUE: Transaxial computed tomographic images of the abdomen and pelvis were obtained with intravenous contrast according to the standard protocol after the uneventful administration of 71 mL Opti-Ray 350 intravenous contrast. COMPARISON: None available FINDINGS: Mild bibasilar atelectasis. The heart is normal in size. No pericardial effusion. The liver is normal in size. Gallbladder surgically absent. No biliary duct dilatation. Portal vein is patent. The spleen, adrenal glands, and pancreas are normal. Kidneys symmetrically enhance. No hydronephrosis or nephrolithiasis. Bladder is normal. Uterus is present. Small hiatal hernia. Duodenum is normal There is diverticulosis with stranding and fluid surrounding the thickened sigmoid colon, consistent with diverticulitis. There is tethering of small bowel loops adjacent to the inflammation with no evidence of small bowel obstruction (series 2, image 101). Foci of adjacent gas is consistent microperforation (series 3, image 46. Abdominal aorta is normal in caliber. Reactive lymph nodes adjacent to the sigmoid colon are enlarged. No suspicious osseous lesions. Procedure Note Sudha Weston MD - 08/21/2024 EXAMINATION: Computed tomography of the abdomen and pelvis with intravenous contrast HISTORY: Abdominal pain TECHNIQUE: Transaxial computed tomographic images of the abdomen and pelvis were obtained with intravenous contrast according to the standard protocol after the uneventful administration of 71 mL Opti-Ray 350 intravenous contrast. COMPARISON: None available FINDINGS: Mild bibasilar atelectasis. The heart is normal in size. No pericardial effusion. The liver is normal in size. Gallbladder surgically absent. No biliary duct dilatation. Portal vein is patent. The spleen, adrenal glands, and pancreas are normal. Kidneys symmetrically enhance. No hydronephrosis or nephrolithiasis. Bladder is normal. Uterus is present. Small hiatal hernia. Duodenum is normal There is diverticulosis with stranding and fluid surrounding the thickened sigmoid colon, consistent with diverticulitis. There is tethering of small bowel loops adjacent to the inflammation with no evidence of small bowel obstruction (series 2, image 101). Foci of adjacent gas is consistent microperforation (series 3, image 46. Abdominal aorta is normal in caliber. Reactive lymph nodes adjacent to the sigmoid colon are enlarged. No suspicious osseous lesions. IMPRESSION: Findings of perforated sigmoid diverticulitis with some tethering and thickening of adjacent small bowel loops to the surrounding inflammatory change. Foci of adjacent gas most consistent represent microperforation. Colonoscopy is recommended following resolution of acute process to exclude an underlying mass. Electronically signed by: Sudha Weston M.D. [facility] CT PROCEDURES Final Resul t * Blood culture Blood (08/21/2024 10:59 AM CDT) Report Final Report: No growth Blood 08/21/2024 10:5 9 AM CDT 08/21/2024 11:25 AM CDT Donnell [facility] - 08/26/2024 1:01 PM CDT From a different site than #1. Collection->Peripheral Interpretive Data 1. Blood cultures are incubated and monitored continuously for 5 days (120 hours). The first negative report is issued within 24 hours of receipt in the laboratory. 2. All positive cultures are resulted and called to physicians/care providers as soon as they are detected. 3. A rapid molecular test for organism identification may be performed using the [employer] Blood Culture Identification panel. This assay detects microbial DNA in a blood culture broth. This assay has been cleared by the [facility] Food and Drug Administration and its performance characteristics have been verified by the [facility]. Interpretive data was last revised on July 03, 2022. Result [facility] MICROBIOLOGY - GENERAL OR DERABLES Final Result Performing Organization Address City/[facility]/ZIP Co de Phone Number [facility] [address] Department [place] [address] * Blood culture Blood (08/21/2024 10:59 AM CDT) Report Final Report: No growth Blood 08/21/2024 10:5 9 AM CDT 08/21/2024 11:25 AM CDT [facility]ative [facility] 08/26/2024 1:01 PM CDT Collection->Peripheral Interpretive Data 1. Blood cultures are incubated and monitored continuously for 5 days (120 hours). The first negative report is issued within 24 hours of receipt in the laboratory. 2. All positive cultures are resulted and called to physicians/care providers as soon as they are detected. 3. A rapid molecular test for organism identification may be performed using the [employer] Blood Culture Identification panel. This assay detects microbial DNA in a blood culture broth. This assay has been cleared by the [facility] Food and Drug Administration and its performance characteristics have been verified by the [facility]. Interpretive data was last revised on July 03, 2022. Result [facility] MICROBIOLOGY - GENERAL OR DERABLES Final Result Performing Organization Address [facility] Co de Phone Number [facility] [address] Department [place] [address] * Sepsis Lactate w/ Reflex (08/21/2024 10:20 AM CDT) Sepsis Lactate 0.9 0.7 - 2.0 mmol/L Blood 08/21/2024 10:2 0 AM CDT 08/21/2024 10:26 AM CDT Result [facility] Akbar Mcdaniel MD LAB BLOOD ORDERABLES Final Resul t Performing Organization Address [facility]/ZIP Co de Phone Number [facility] [address] Department [place] [place] [address] * eGFR (08/21/2024 10:20 AM CDT) eGFR 87 >=60 mL/min/1. 73 m2 Comment: Interpretive Data Reference Interval Normal >/= 90 mL/min/1.73m2 Mildly decreased* 60 - 89 mL/min/1.73m2 Mildly to moderately decreased 45 - 59 mL/min/1.73m2 Moderately to severely decreased 30 - 44 mL/min/1.73m2 Severely decreased 15 - 29 mL/min/1.73m2 Kidney Failure < 15 mL/min/1.73m2 *Relative to young adult level Estimated glomerular filtration rate is determined by the 2020 CKD-EPI equation recommended by the National Kidney Foundation (A Unifying Approach to GFR Estimation: Recommendations of the NKF-ASK Task Force on Reassessing the Inclusion of Race in Diagnosing Kidney Disease, JASN 2020). The CKD-EPI equation should not be used for patients with unstable renal function and has not been validated in children and those over 70. Current interpretive data was last reviewed 2021. Blood 08/21/2024 10:2 0 AM CDT 08/21/2024 10:27 AM CDT Akbar Mcdaniel MD LAB BLOOD ORDERABLES Final Resul t Performing Organization Address [facility]/ZIP Co de Phone Number [facility] [address] Department [place] [employer] [place] [address] * (ABNORMAL) CBC with auto differential (08/21/2024 10:20 AM CDT) WBC 16.5(H) 3.8 - 9.9 K/cumm Hgb 12.8 11.9 - 15.5 g/dL [facility] Hct 38.9 35.6 - 45.5 % [facility] Plt 268 150 - 400 K/cumm [facility] MPV 10.3 9.1 - 12.[address] [facility] RBC 4.16 3.90 - 5.20 M/cumm [facility] MCV 93.5 81.3 - 96.[address] [facility] MCH 30.8 27.1 - 33.[address] [facility] MCHC 32.9 32.3 - 35.7 g/dL [facility] RDW CV 13.2 11.1 - 14.9 % [facility] RDW SD 45.5 35.7 - 48.[address] [facility] NRBC abs 0.00 0.00 - 0.01 K/cumm [facility] Blood 08/21/2024 10:2 0 AM CDT 08/21/2024 10:28 AM CDT us Akbar Mcdaniel MD LAB BLOOD ORDERABLES Final Resul t [facility] [address] Department [place] [address] * (ABNORMAL) Manual Differential (08/21/2024 10:20 AM CDT) Differential Manual Cells Counted 115 [facility] Neutrophil abs 12.0(H) 1.5 - 6.5 K/cumm [facility] Imm gran abs 0.3(H) 0.0 - 0.1 K/cumm [facility] Lymphocyte abs 2.7 0.8 - 3.3 K/cumm [facility] Monocyte abs 1.2(H) 0.2 - 0.8 K/cumm [facility] Basophil abs 0.3(H) 0.0 - 0.1 K/cumm [facility] Neutrophil pct 73.0 % [facility] Comment: Interpretive Data Percent cell count reference ranges are not reported, since discordance with absolute values may lead to misinterpretation of CBC data. Current Interpretive Data was last revised on 2017. Lymphocyte pct 16.5 % [facility] Comment: Interpretive Data Percent cell count reference ranges are not reported, since discordance with absolute values may lead to misinterpretation of CBC data. Current Interpretive Data was last revised on 2017. Monocyte pct 7.0 % [facility] Comment: Interpretive Data Percent cell count reference ranges are not reported, since discordance with absolute values may lead to misinterpretation of CBC data. Current Interpretive Data was last revised on 2017. Basophil pct 1.7 % [facility] Comment: Interpretive Data Percent cell count reference ranges are not reported, since discordance with absolute values may lead to misinterpretation of CBC data. Current Interpretive Data was last revised on 2017. Metamyelocyte pct 0.9(H) 0.0 - 0.0 % [facility] Myelocyte pct 0.9(H) 0.0 - 0.0 % [facility] RBC morphology Normal [facility] Morphology scrn See Comment [facility] Comment:PLT: Platelet morpho logy normal Blood 08/21/2024 10:2 0 AM CDT 08/21/2024 10:28 AM CDT Akbar Mcdaniel MD LAB BLOOD ORDERABLES Final Resul t Performing Organization Address City/[facility]/ZIP Co de Phone Number [facility] [address] Department [place] [employer] [place] [address] * Type and screen (08/21/2024 10:20 AM CDT) Pathologist [facility] ABO Rh A Positive Linda, indirect Negative [facility] Blood 08/21/2024 10:2 0 AM CDT 08/21/2024 10:[address] [facility] - 08/21/2024 11:12 AM CDT Has the patient had Daratumumab or Isatuximab in the past 6 months?->Unknown [place] [facility] BLOOD BANK TEST ORDERABLE S Final Result [facility] [address] Department [place] [employer] [place] [address] * (ABNORMAL) Comprehensive metabolic panel (08/21/2024 10:20 AM CDT) Sodium 137 135 - 145 mmol/L Potassium, pl 4.3 3.3 - 4.9 mmol/L [facility] Chloride 100 97 - 110 mmol/L [facility] CO2 20(L) 22 - 32 mmol/L [facility] Anion gap 17(H) 2 - 15 mmol/L [facility] BUN 13 6 - 25 mg/dL [facility] Creatinine 0.74 0.60 - 1.10 mg/dL [facility] Glucose 107 70 - 199 mg/dL [facility] Comment: Interpretive Data Fasting glucose >/= 126 mg/dl is diagnostic for diabetes. Fasting is defined as no caloric intake for at least 8 hours. Fasting glucose between 100 mg/dl to 125 mg/dl is diagnostic of prediabetes. In a patient with classic symptoms of hyperglycemia or hyperglycemic crisis, a random glucose >/= 200 mg/dl is diagnostic for diabetes. In the absence of unequivocal hyperglycemia, results should be confirmed by repeat testing. The classification and Diagnosis of Diabetes Diabetes Care 2021; 46: S19-S40. Current interpretive data was last revised 2022. Calcium 9.2 8.5 - 10.3 mg/dL [facility] Bilirubin, total 0.4 0.1 - 1.2 mg/dL [facility] Protein, pl 7.1 6.5 - 8.5 g/dL [facility] Albumin 3.9 3.5 - 5.0 g/dL [facility] Alk phos 69 40 - 130 Units/L [facility] ALT 31 7 - 45 Units/L [facility] AST 36 10 - 45 Units/L [facility] Blood 08/21/2024 10:2 0 AM CDT 08/21/2024 10:27 AM CDT us Akbar Mcdaniel MD LAB BLOOD ORDERABLES Final Resul t [facility] [address] Department of Laboratories [place], [place] [id number] * ECG 12 lead (08/21/2024 10:08 AM CDT) 08/21/2024 10:0 8 AM CDT Narrative [facility] - 08/21/2024 10:02 PM CDT Vent Rate: 69 bpm RR Interval: 859 msec [place] Interval: 152 msec QRS Duration: 102 msec QT Interval: 380 msec QTC Interval: 400 msec P-R-T [place]: 57 - -3 - 34 degrees IMPRESSION: SINUS RHYTHM MINIMAL VOLTAGE CRITERIA FOR LVH, CONSIDER NORMAL VARIANT [MEETS CRITERIA IN ONE OF: R(aVL), S(V1), R(V5), R(V5/V6)+S(V1)] MINIMAL ST DEPRESSION [0.025+ mV ST DEPRESSION] BORDERLINE ECG Electronically Signed By: Adolfo Zafar MD PhD us Akbar Mcdaniel MD ECG ORDERABLES Final Result [facility] from Last 3 [place] [address] [facility] [place] [address] [place] [address] [facility] [employer] [place] [phone] [facility] Advance Directives For more information, please contact: [phone] * Full Code (Latest Code Status on File) Date Activated Date Inactivated Comments 08/21/2024 3:14 PM 08/23/2024 6:43 PM Care Teams Wall Taper Relationship Specialty Start Date End Date Twyla Song MD PCP - General Family Medicine 06/02/18
--- OUTSIDE RECORDS SUMMARY | 2024-09-16 13:45 | XMS_ITS | Clinical Summary ---
Author Organization [facility] Address [address] [place] [address] Care Team Providers Care White Washer Name Role Phone Twyla Song MD Primary Care Provider + Allergies Active Allergy Reactions Criticality Noted Date [...] mouth daily as needed for congestion 08/22/19 Discontinu ed(Error) ciprofloxacin (CIPRO) 500 mg tabletIndicati [...] Myogenic ptosis of eyelid of both eyes Assessment & Plan (08/30/2023 8:47 PM CDT): Cecy Vale is doing well after Repair Ptosis; Bilateral Upper Lid - Bilateral on 07/03/2023. She demonstrates excellent healing and has been released from my care and will follow up as needed. She has been instructed to continue comprehensive eye care with Dr. Garza. Assessment & Plan (05/29/2023 10:03 PM DIRECTOR HOME HEALTH): Bilateral upper eyelid ptosis with symptomatic visual [...] 10/27/2018 Assessment & Plan (04/05/2024 1:10 PM DIRECTOR HOME HEALTH): Large phys CDR both eyes (OU) - [...] 2018 Assessment & Plan (04/05/2024 1:10 PM DIRECTOR HOME HEALTH): NVS, monitor Assessment & Plan (04/02/2023 9:41 AM CDT): NVS, monitor Assessment & Plan (02/28/2021 4:43 PM CDT): NVS, monitor Assessment & Plan (10/27/2018 11:23 AM CDT): Not visually significant, monitor Lipoma of neck 06/25/2018 Overview (06/25/2018): Added automatically from request for surgery [id number] Heart murmur 10/17/2013 Encounters Date Type Department Care Team Description 08/22/2024 Telephone [facility] Ophthalmology [facility] [place] [address] Leilani Garza, OD 08/21/2024 10:05 AM CDT - 08/23/2024 2:42 PM CDT Hospital Encounter [facility] [address] [place] [address] Akbar Mcdaniel MD Dehaan, MD Matheus Brown, Petra Gayle MD Perforation of sigmoid colon due to diverticulitis (Primary Dx); Sepsis due to coliform organism (HCC) [A41.59]; Primary hypertension [I10]; Metabolic acidemia [E87.20]; Anemia, unspecified type [D64.9] Discharge Disposition: Discharge to home or self care from Last 3 Months Surgical History Surgery Date Site/Laterality Comments COLONOSCOPY 06/01/2022 - 05/31/2023 WISDOM TOOTH EXTRACTION in 30s CHOLECYSTECTOMY 06/01/2018 - 05/31/2019 Medical History Medical History Date Comments Osteoarthritis Lipoma of neck anterior Postmenopausal MVP (mitral valve prolapse) 2008 mild , no symptoms or medications Family History Medical History Relation Name Comments Hyperlipidemia Father Glaucoma Mother Heart disease Mother Anesthesia problems Neg Hx Relation Name Status Comments Father Mother Social History Tobacco Use Types Packs/Day Years [...] on file Legal Sex Female 12:28 PM DIRECTOR HOME HEALTH Gender Identity Female 07/03/2023 8:53 AM DIRECTOR HOME HEALTH Sexual Orientation Not on file Obstetrics History Last Filed Vital Signs Vital Sign Reading [...] 08/21/2024 3:15 PM CDT Plan of Treatment Health Maintenance Due Date Last Done Comments Breast Cancer Screening-Mammogram 1954 Colon Cancer Screening-Colonoscopy 1954 Depression Screening 1954 Hepatitis C Screening 1954 Osteoporosis Screening-Bone Density Scan 1954 Hepatitis B Screening 1972 Zoster Vaccine (1 of 2) 2004 Well Visit 65+ 2019 Pneumococcal vaccine 65+ (2 of 2 - PPSV23) 05/26/2020 05/26/2019 Covid-19 Vaccine (2 - season) 2024 Influenza Vaccine (Season Ended) 2025 02/18/20 20 Fall Risk Assessment 08/23/2025 08/23/2024 DTaP/Tdap/Td Vaccine (2 - Td or Tdap) 10/05/202811/2018 Procedures Procedure Name Priority Date/Time Associated Diagnosis [...] Results * eGFR (08/23/2024 12:33 AM CDT) Pathologist [facility] eGFR >90 >=60 mL/min/1. 73 m2 Comment: [...] Jarvis MD LAB BLOOD ORDERABLES Final Result [facility] [address] Department of Laboratories [place], [place] [id number] * (ABNORMAL) Differential, auto (08/23/2024 12:33 AM CDT) [facility] Neutrophil abs 5.6 1.5 - 6.5 K/cumm Imm gran abs 0.0 0.0 - 0.1 K/cumm [facility] Lymphocyte abs 2.4 0.8 - 3.3 K/cumm [facility] Monocyte abs 1.0(H) 0.2 - 0.8 K/cumm [facility] Eosinophil abs 0.1 0.0 - 0.5 K/cumm [facility] Basophil abs 0.1 0.0 - 0.1 K/cumm [facility] Neutrophil pct 60.7 % [facility] Comment: Interpretive Data Percent cell count reference ranges are not reported, since discordance with absolute values may lead to misinterpretation of CBC data. Current Interpretive Data was last revised on 2017. Imm gran pct 0.2 % [facility] Comment: Interpretive Data Percent cell count reference ranges are not reported, since discordance with absolute values may lead to misinterpretation of CBC data. Current Interpretive Data was last revised on 2017. Lymphocyte pct 26.2 % [facility] Comment: Interpretive Data Percent cell count reference ranges are not reported, since discordance with absolute values may lead to misinterpretation of CBC data. Current Interpretive Data was last revised on 2017. Monocyte pct 10.9 % [facility] Comment: Interpretive Data Percent cell count reference ranges are not reported, since discordance with absolute values may lead to misinterpretation of CBC data. Current Interpretive Data was last revised on 2017. Eosinophil pct 1.5 % [facility] Comment: Interpretive Data Percent cell count reference ranges are not reported, since discordance with absolute values may lead to misinterpretation of CBC data. Current Interpretive Data was last revised on 2017. Basophil pct 0.5 % [facility] Comment: Interpretive Data Percent cell count reference ranges are not reported, since discordance with absolute values may lead to misinterpretation of CBC data. Current Interpretive Data was last revised on 2017. Blood 08/23/2024 12:3 3 AM CDT 08/23/2024 1:29 AM CDT us Petra Jarvis MD LAB BLOOD ORDERABLES Final Result [facility] [address] Department [place] [address] * (ABNORMAL) CBC with auto differential (08/23/2024 12:33 AM CDT) WBC 9.3 3.8 - 9.9 K/cumm Hgb 11.3(L) 11.9 - 15.5 g/dL [facility] Hct 34.5(L) 35.6 - 45.5 % [facility] Plt 244 150 - 400 K/cumm [facility] MPV 11.3 9.1 - 12.3 fL [facility] RBC 3.65(L) 3.90 - 5.20 M/cumm [facility] MCV 94.5 81.3 - 96.4 fL [facility] MCH 31.0 27.1 - 33.3 pg [facility] MCHC 32.8 32.3 - 35.7 g/dL [facility] RDW CV 13.0 11.1 - 14.9 % [facility] RDW SD 45.1 35.7 - 48.1 fL [facility] NRBC abs 0.00 0.00 - 0.01 K/cumm [facility] Blood 08/23/2024 12:3 3 AM CDT 08/23/2024 1:29 AM CDT Petra Jarvis MD LAB BLOOD ORDERABLES Final Result Performing Organization Address [facility] Co de Phone Number [facility] [address] [facility] [employer] [place], [place] [id number] * Magnesium (08/23/2024 12:33 AM CDT) [facility] Magnesium 1.9 1.4 - 2.5 mg/dL Blood 08/23/2024 12:3 3 AM CDT 08/23/2024 1:29 AM CDT Petra Jarvis MD LAB BLOOD ORDERABLES Final Result Performing Organization Address City/[facility] Co de Phone Number [facility] [address] Department [place] [address] * (ABNORMAL) Renal function panel (08/23/2024 12:33 AM CDT) Pathologist [facility] Sodium 144 135 - 145 mmol/L Potassium, pl 4.0 3.3 - 4.9 mmol/L [facility] Chloride 109 97 - 110 mmol/L [facility] CO2 21(L) 22 - 32 mmol/L [facility] Anion gap 14 2 - 15 mmol/L [facility] BUN 7 6 - 25 mg/dL [facility] Creatinine 0.53(L) 0.60 - 1.10 mg/dL [facility] Glucose 102 70 - 199 mg/dL [facility] Comment: Interpretive Data Fasting glucose >/= 126 [...] 2022. Calcium 8.6 8.5 - 10.3 mg/dL [facility] Phosphorus, pl 2.1(L) 2.3 - 4.5 mg/dL [facility] Albumin 3.5 3.5 - 5.0 g/dL [facility] Blood 08/23/2024 12:3 3 AM CDT 08/23/2024 1:29 AM CDT Petra Jarvis MD LAB BLOOD ORDERABLES Final Result [facility] [address] Department [place] [address] * POCT glucose (08/22/2024 12:44 PM CDT) Glucose, POC 96 70 - 199 mg/dL Comment: For Glucose values <35 mg/dl when Hematocrit is >60 mg/dl,the test may not accurately detect significant hypoglycemia,and testing in the Laboratory should be considered if clinically indicated. POC Performer [phone] [facility] Blood 08/22/2024 12:4 4 PM CDT 08/22/2024 12:44 PM CDT Petra Jarvis MD LAB POCT ORDERABLES - HERMINIO CE Final Result Performing Organization Address [facility]/ZIP Co de Phone Number [facility] [address] Department of [employer] [place], [place] [id number] * POCT glucose (08/22/2024 3:01 AM CDT) Glucose, POC 75 70 - 199 mg/dL Comment: For Glucose values <35 mg/dl when Hematocrit is >60 mg/dl,the test may not accurately detect significant hypoglycemia,and testing in the Laboratory should be considered if clinically indicated. POC Performer [phone] [facility] Blood 08/22/2024 3:01 AM CDT 08/22/2024 3:01 AM CDT Dann Burns MD LAB POCT ORDERABLES - DE VICE Final Result Performing Organization Address [facility] Co de Phone Number [facility] [address] Department [place] [address] * eGFR (08/22/2024 12:53 AM CDT) eGFR [...] MD LAB BLOOD ORDERABLES Fin al Result [facility] [address] Department [place] [address] * (ABNORMAL) Differential, auto (08/22/2024 12:53 AM CDT) Neutrophil abs 7.7(H) 1.5 - 6.5 K/cumm Imm gran abs 0.1 0.0 - 0.1 K/cumm [facility] Lymphocyte abs 2.4 0.8 - 3.3 K/cumm [facility] Monocyte abs 1.2(H) 0.2 - 0.8 K/cumm [facility] Eosinophil abs 0.0 0.0 - 0.5 K/cumm [facility] Basophil abs 0.0 0.0 - 0.1 K/cumm [facility] Neutrophil pct 67.7 % [facility] Comment: Interpretive Data Percent cell count reference ranges are not reported, since discordance with absolute values may lead to misinterpretation of CBC data. Current Interpretive Data was last revised on 2017. Imm gran pct 0.4 % [facility] Comment: Interpretive Data Percent cell count reference ranges are not reported, since discordance with absolute values may lead to misinterpretation of CBC data. Current Interpretive Data was last revised on 2017. Lymphocyte pct 20.9 % [facility] Comment: Interpretive Data Percent cell count reference ranges are not reported, since discordance with absolute values may lead to misinterpretation of CBC data. Current Interpretive Data was last revised on 2017. Monocyte pct 10.3 % [facility] Comment: Interpretive Data Percent cell count reference ranges are not reported, since discordance with absolute values may lead to misinterpretation of CBC data. Current Interpretive Data was last revised on 2017. Eosinophil pct 0.4 % [facility] Comment: Interpretive Data Percent cell count reference ranges are not reported, since discordance with absolute values may lead to misinterpretation of CBC data. Current Interpretive Data was last revised on 2017. Basophil pct 0.3 % [facility] Comment: Interpretive Data Percent cell count reference ranges are not reported, since discordance with absolute values may lead to misinterpretation of CBC data. Current Interpretive Data was last revised on 2017. Blood 08/22/2024 12:5 3 AM CDT 08/22/2024 1:53 AM CDT Dann Burns MD LAB BLOOD ORDERABLES Fin al Result Performing Organization Address [facility] Co de Phone Number [facility] [address] Department [place] [address] * (ABNORMAL) CBC with auto differential (08/22/2024 12:53 AM CDT) WBC 11.4(H) 3.8 - 9.9 K/cumm Hgb 11.5(L) 11.9 - 15.5 g/dL [facility] Hct 35.9 35.6 - 45.5 % [facility] Plt 224 150 - 400 K/cumm [facility] MPV 11.3 9.1 - 12.3 fL [facility] RBC 3.77(L) 3.90 - 5.20 M/cumm [facility] MCV 95.2 81.3 - 96.4 fL [facility] MCH 30.5 27.1 - 33.3 pg [facility] MCHC 32.0(L) 32.3 - 35.7 g/dL [facility] RDW CV 13.4 11.1 - 14.9 % [facility] RDW SD 47.3 35.7 - 48.1 fL [facility] NRBC abs 0.00 0.00 - 0.01 K/cumm [facility] Blood 08/22/2024 12:5 3 AM CDT 08/22/2024 1:53 AM CDT Dann Burns MD LAB BLOOD ORDERABLES Fin al Result Performing Organization Address [facility] Co de Phone Number [facility] [address] [place] [address] * Phosphorus (08/22/2024 12:53 AM CDT) [facility] Phosphorus, pl 2.8 2.3 - 4.5 mg/dL Blood 08/22/2024 12:5 3 AM CDT 08/22/2024 1:52 AM CDT Dann Burns MD LAB BLOOD ORDERABLES Fin al Result Performing Organization Address [facility] Co de Phone Number [facility] [address] [place] [address] * Magnesium (08/22/2024 12:53 AM CDT) [facility] Magnesium 1.9 1.4 - 2.5 mg/dL Blood 08/22/2024 12:5 3 AM CDT 08/22/2024 1:52 AM CDT Dann Burns MD LAB BLOOD ORDERABLES Fin al Result Performing Organization Address [facility] de Phone Number [facility] [address] [facility] [place] [address] * (ABNORMAL) Comprehensive metabolic panel (08/22/2024 12:53 AM CDT) [facility] Sodium 138 135 - 145 mmol/L Potassium, pl 4.0 3.3 - 4.9 mmol/L [facility] Chloride 103 97 - 110 mmol/L [facility] CO2 20(L) 22 - 32 mmol/L [facility] Anion gap 15 2 - 15 mmol/L [facility] BUN 13 6 - 25 mg/dL [facility] Creatinine 0.59(L) 0.60 - 1.10 mg/dL [facility] Glucose 65(L) 70 - 199 mg/dL [facility] Comment: Interpretive Data Fasting glucose >/= 126 [...] 2022. Calcium 8.9 8.5 - 10.3 mg/dL [facility] Bilirubin, total 0.4 0.1 - 1.2 mg/dL [facility] Protein, pl 6.2(L) 6.5 - 8.5 g/dL [facility] Albumin 3.5 3.5 - 5.0 g/dL [facility] Alk phos 62 40 - 130 Units/L [facility] ALT 22 7 - 45 Units/L [facility] AST 18 10 - 45 Units/L [facility] Blood 08/22/2024 12:5 3 AM CDT 08/22/2024 1:52 AM CDT us Dann Burns MD LAB BLOOD ORDERABLES Fin al Result [facility] [address] Department [place] [address] * CT Abdomen Pelvis W Contrast (08/21/2024 [...] mass. Electronically signed by: Sudha Weston M.D. [facility] IMG CT PROCEDURES Final Resul t * Blood culture Blood (08/21/2024 10:59 AM CDT) Report Final Report: No growth Blood 08/21/2024 10:5 9 AM CDT 08/21/2024 11:25 AM CDT [facility]ative [facility] - 08/26/2024 1:01 PM CDT From a [...] organism identification may be performed using the [employer] Blood Culture Identification panel. This assay detects microbial DNA in a blood culture broth. This assay has been cleared by the [place] Food and Drug Administration and its performance characteristics have been verified by the [facility] Microbiology Laboratory. Interpretive data was last revised on July 03, 2022. [facility] LAB MICROBIOLOGY - GENERAL OR DERABLES Final Result [facility] [address] Department [place] [address] * Blood culture Blood (08/21/2024 10:59 AM CDT) Report Final Report: No growth Blood 08/21/2024 10:5 9 AM CDT 08/21/2024 11:25 AM CDT Narrative [facility] - 08/26/2024 1:01 PM CDT Collection->Peripheral Interpretive [...] organism identification may be performed using the [employer] Blood Culture Identification panel. This assay detects microbial DNA in a blood culture broth. This assay has been cleared by the [place] Food and Drug Administration and its performance characteristics have been verified by the [facility] Microbiology Laboratory. Interpretive data was last revised on July 03, 2022. [facility] LAB MICROBIOLOGY - GENERAL OR DERABLES Final Result Performing Organization Address City/[facility]/ZIP Co de Phone Number [facility] [address] Department [place] [address] * Sepsis Lactate w/ Reflex (08/21/2024 10:20 AM CDT) Pathologist [facility] Sepsis Lactate 0.9 0.7 - 2.0 mmol/L Blood 08/21/2024 10:2 0 AM CDT 08/21/2024 10:26 AM CDT Akbar Mcdaniel MD LAB BLOOD ORDERABLES Final Resul t Performing Organization Address [facility] Co de Phone Number [facility] [address] Department of [employer] [place], [place] [id number] * eGFR (08/21/2024 10:20 AM CDT) Pathologist [facility] eGFR 87 >=60 mL/min/1. 73 m2 Comment: [...] MD LAB BLOOD ORDERABLES Final Resul t [facility] [address] Department [place] [address] * (ABNORMAL) CBC with auto differential (08/21/2024 10:20 AM CDT) WBC 16.5(H) 3.8 - 9.9 K/cumm Hgb 12.8 11.9 - 15.5 g/dL [facility] Hct 38.9 35.6 - 45.5 % [facility] Plt 268 150 - 400 K/cumm [facility] MPV 10.3 9.1 - 12.3 fL [facility] RBC 4.16 3.90 - 5.20 M/cumm [facility] MCV 93.5 81.3 - 96.4 fL [facility] MCH 30.8 27.1 - 33.3 pg [facility] MCHC 32.9 32.3 - 35.7 g/dL [facility] RDW CV 13.2 11.1 - 14.9 % [facility] RDW SD 45.5 35.7 - 48.1 fL [facility] NRBC abs 0.00 0.00 - 0.01 K/cumm [facility] Blood 08/21/2024 10:2 0 AM CDT 08/21/2024 10:28 AM CDT Akbar Mcdaniel MD LAB BLOOD ORDERABLES Final Resul t [facility] [address] Department [place] [address] * (ABNORMAL) Manual Differential (08/21/2024 10:20 AM CDT) Differential Manual Cells Counted 115 [facility] Neutrophil abs 12.0(H) 1.5 - 6.5 K/cumm [facility] Imm gran abs 0.3(H) 0.0 - 0.1 K/cumm [facility] Lymphocyte abs 2.7 0.8 - 3.3 K/cumm [facility] Monocyte abs 1.2(H) 0.2 - 0.8 K/cumm [facility] Basophil abs 0.3(H) 0.0 - 0.1 K/cumm [facility] Neutrophil pct 73.0 % [facility] Comment: Interpretive Data Percent cell count reference ranges are not reported, since discordance with absolute values may lead to misinterpretation of CBC data. Current Interpretive Data was last revised on 2017. Lymphocyte pct 16.5 % [facility] Comment: Interpretive Data Percent cell count reference ranges are not reported, since discordance with absolute values may lead to misinterpretation of CBC data. Current Interpretive Data was last revised on 2017. Monocyte pct 7.0 % [facility] Comment: Interpretive Data Percent cell count reference ranges are not reported, since discordance with absolute values may lead to misinterpretation of CBC data. Current Interpretive Data was last revised on 2017. Basophil pct 1.7 % [facility] Comment: Interpretive Data Percent cell count reference ranges are not reported, since discordance with absolute values may lead to misinterpretation of CBC data. Current Interpretive Data was last revised on 2017. Metamyelocyte pct 0.9(H) 0.0 - 0.0 % [facility] Myelocyte pct 0.9(H) 0.0 - 0.0 % [facility] RBC morphology Normal [facility] Morphology scrn See Comment [facility] Comment:PLT: Platelet morpho logy normal Blood 08/21/2024 10:2 0 AM CDT 08/21/2024 10:28 AM CDT Akbar Mcdaniel MD LAB BLOOD ORDERABLES Final Resul t [facility] [address] Department [place] [address] * Type and screen (08/21/2024 10:20 AM CDT) ABO Rh A Positive Linda, indirect Negative [facility] Blood 08/21/2024 10:2 0 AM CDT 08/21/2024 10:33 AM CDT Narrative [facility] - 08/21/2024 11:12 AM CDT Has the patient had Daratumumab or Isatuximab in the past 6 months?->Unknown [facility] LAB BLOOD BANK TEST ORDERABLE S Final Result Performing Organization Address City/[facility] Co de Phone Number [facility] [address] Department [place] [address] * (ABNORMAL) Comprehensive metabolic panel (08/21/2024 10:20 AM CDT) Pathologist [facility] Sodium 137 135 - 145 mmol/L Potassium, pl 4.3 3.3 - 4.9 mmol/L [facility] Chloride 100 97 - 110 mmol/L [facility] CO2 20(L) 22 - 32 mmol/L [facility] Anion gap 17(H) 2 - 15 mmol/L [facility] BUN 13 6 - 25 mg/dL [facility] Creatinine 0.74 0.60 - 1.10 mg/dL [facility] Glucose 107 70 - 199 mg/dL [facility] Comment: Interpretive Data Fasting glucose >/= 126 [...] 2022. Calcium 9.2 8.5 - 10.3 mg/dL [facility] Bilirubin, total 0.4 0.1 - 1.2 mg/dL [facility] Protein, pl 7.1 6.5 - 8.5 g/dL [facility] Albumin 3.9 3.5 - 5.0 g/dL [facility] Alk phos 69 40 - 130 Units/L [facility] ALT 31 7 - 45 Units/L [facility] AST 36 10 - 45 Units/L [facility] Blood 08/21/2024 10:2 0 AM CDT 08/21/2024 10:27 AM CDT Akbar Mcdaniel MD LAB BLOOD ORDERABLES Final Resul t Performing Organization Address [facility] de Phone Number [facility] [address] Department of [place] [address] * ECG 12 lead (08/21/2024 10:08 AM CDT) 08/21/2024 10:0 8 AM CDT Narrative [facility] - 08/21/2024 10:02 PM CDT Vent Rate: 69 bpm RR Interval: 859 msec DC Interval: 152 msec QRS Duration: 102 msec QT Interval: 380 msec QTC Interval: 400 msec P-R-T [place]: 57 - -3 - 34 degrees IMPRESSION: SINUS RHYTHM MINIMAL VOLTAGE CRITERIA FOR LVH, CONSIDER NORMAL VARIANT [MEETS CRITERIA IN ONE OF: R(aVL), S(V1), R(V5), R(V5/V6)+S(V1)] MINIMAL ST DEPRESSION [0.025+ mV ST DEPRESSION] BORDERLINE ECG Electronically Signed By: Adolfo Zafar MD PhD Akbar Mcdaniel MD ECG ORDERABLES Final Result Performing Organization Address [facility] Co de Phone Number [facility] [employer] from Last 3 Months Insurance [facility] [employer] [facility] H[facility]/PPO Address: [address] [place] [address] [facility] CHO[employer] [facility] [facility] H[facility]/PPO Address: [address] [place] [address] [facility] CHO[employer] [facility] H[facility]/PPO Address: [facility] [address] [place] [phone] Advance Directives For more information, please contact: [phone] * Full Code (Latest Code Status on File) Date Activated Date Inactivated Comments 08/21/2024 3:14 PM 08/23/2024 6:43 PM Care Teams [employer] Relationship Specialty Start Date End Date Twyla Song MD PCP - General Family Medicine 06/02/18
== END 2024-09-16 13:40 | disposition home or self-care (01) ==
LOC: ANHIMG 13:42
PROVIDERS: PCP Family Medicine; Visit Provider Family Medicine
DX: M81.0 Age-related osteoporosis without current pathological fracture (principal); M85.89 Other specified disorders of bone density and structure, multiple sites
CPT/HCPCS: 77080

== ENCOUNTER 2024-09-20 07:51 | Outpatient (CLI) | payer OTHER, SELFPAY ==
--- NOTE | ~2024-09-20 | CT_ITS ---
CT of the Abdomen and Pelvis: Indication: Diverticulitis Technique: 2.5 mm axial scans were obtained through the abdomen and pelvis following intravenous adm inistration of 100 cc of Omnipaque 350. Dose reduction technique was used on this scan by utilizing a utomated exposure control and iterative reconstruction technique. The dose-length product (DLP) was 5 51.30 mGy-cm. Findings: Scans through the lung bases are unremarkable. Small hiatal hernia noted. The liver, spleen, pancreas, adrenals and kidneys are within normal limits. Cholecystectomy clips are present. There are atherosclerotic calcifications of the aorta. No lymphadenopathy. No bowel obstruction or bowel wall thickening. Small fat-containing umbilical hernia noted. Images through the pelvis were performed. Urinary bladder unremarkable. No pelvic mass seen. No ascit es. Impression: No acute abnormalities seen. Small fat-containing umbilical hernia. Small hiatal hernia. Reviewed, dictated and finalized at [facility]. Impression: No acute abnormalities seen. Small fat-containing umbilical hernia. Small hiatal hernia.
--- OUTSIDE RECORDS SUMMARY | 2024-09-20 07:58 | XMS_ITS | Referral Summary ---
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 Drywall Stripper Name Role Phone Twyla Song MD Primary Care Provider + Encounters Date Type Department Care Team Description 08/21/2024 10:05 AM CDT - 08/23/2024 2:42 PM CDT Hospital Encounter [facility] [address] [place] [address] Akbar Mcdaniel MD Dehaan, MD Matheus Brown, Petra Gayle MD Perforation of sigmoid colon due to diverticulitis (Primary Dx); Sepsis due to coliform organism (HCC) [A41.59]; Primary hypertension [I10]; Metabolic acidemia [E87.20]; Anemia, unspecified type [D64.9] Discharge Disposition: Discharge to home or self care 08/22/2024 Telephone [facility] [address] [place] [address] Leilani Garza, OD from Last 3 Months Allergies Active Allergy Reactions Criticality Noted Date Comments Hydrocodone Hives,Nausea only High 08/09/2018 Penicillins Hives Medium Medications cholecalciferol (VITAMIN D-3) 2,000 unit tabletIndicatio ns:Osteoporosis ,Vitamin D Deficiency Take 1 tablet (2,000 Units total) by mouth daily Active turmeric root extract 500 mg capsuleIndicati ons:Supplement Take 1 tablet by mouth daily Active cinnamon bark 500 mg capsuleIndicati ons:Supplement Take 1 capsule (500 mg total) by mouth daily Active naproxen (ANAPROX,ALEVE) 220 mg tabletIndicatio ns:Anti-inflamm atory,Pain Take 1 tablet (220 mg total) by mouth 2 (two) times a day as needed for pain Active BIOTIN ORALIndications :Hair skin nails Take 1 tablet by mouth daily Active docosahexaenoic acid/epa (FISH OIL ORAL)Indication s:Supplement Take 1 tablet/capsu le by mouth daily Active ezetimibe (ZETIA) 10 mg tablet Take 1 tablet (10 mg total) by mouth nightly Active losartan (COZAAR) 25 mg tablet Take 1 tablet (25 mg total) by mouth nightly Active ciprofloxacin (CIPRO) 500 mg tabletIndicatio ns:Abdominal/Pe lvic Infection Take 1 tablet (500 mg total) by mouth 2 (two) times a day for 10 doses 10 tablet 08/23/2024 08/29/19 metroNIDAZOLE (FLAGYL) 500 mg tabletIndicatio ns:Abdominal/Pe lvic Infection Take 1 tablet (500 mg total) by mouth 3 (three) times a day for 15 doses 15 tablet 08/23/2024 08/29/19 25 Active Problems Problem Noted Date Diagnosed Date [...] Assessment & Plan (05/29/2023 10:03 PM DIRECTOR OF AVIATION): Bilateral upper eyelid ptosis with symptomatic visual [...] Assessment & Plan (04/05/2024 1:10 PM DIRECTOR OF AVIATION): Large phys CDR both eyes (OU) - [...] Assessment & Plan (04/05/2024 1:10 PM DIRECTOR OF AVIATION): NVS, monitor Assessment & Plan (04/02/2023 9:41 AM CDT): NVS, monitor Assessment & Plan (02/28/2021 4:43 PM CDT): NVS, monitor Assessment & Plan (10/27/2018 11:23 AM CDT): Not visually significant, monitor Lipoma of neck 06/25/2018 Overview (06/25/2018): Added automatically from request for surgery [id number] Heart murmur 10/17/2013 Social History Tobacco Use [...] file Legal Sex Female 12:28 PM DIRECTOR OF AVIATION Gender Identity Female 07/03/2023 8:53 AM DIRECTOR OF AVIATION Sexual Orientation Not on file Last Filed [...] Jarvis MD LAB BLOOD ORDERABLES Final Result [facility] [address] [place] [address] * (ABNORMAL) Differential, auto (08/23/2024 12:33 AM CDT) Neutrophil abs 5.6 1.5 - 6.5 K/cumm Imm gran abs 0.0 0.0 - 0.1 K/cumm [facility] Lymphocyte abs 2.4 0.8 - 3.3 K/cumm [facility] Monocyte abs 1.0(H) 0.2 - 0.8 K/cumm [facility] Eosinophil abs 0.1 0.0 - 0.5 K/cumm [facility] Basophil abs 0.1 0.0 - 0.1 K/cumm [facility] Neutrophil pct 60.7 % [facility] Comment: Interpretive Data Percent cell count reference ranges are not reported, since discordance with absolute values may lead to misinterpretation of CBC data. Current Interpretive Data was last revised on 2017. Imm gran pct 0.2 % [facility] Comment: Interpretive Data Percent cell count reference ranges are not reported, since discordance with absolute values may lead to misinterpretation of CBC data. Current Interpretive Data was last revised on 2017. Lymphocyte pct 26.2 % [facility] Comment: Interpretive Data Percent cell count reference ranges are not reported, since discordance with absolute values may lead to misinterpretation of CBC data. Current Interpretive Data was last revised on 2017. Monocyte pct 10.9 % [facility] Comment: Interpretive Data Percent cell count reference ranges are not reported, since discordance with absolute values may lead to misinterpretation of CBC data. Current Interpretive Data was last revised on 2017. Eosinophil pct 1.5 % [facility] Comment: Interpretive Data Percent cell count reference ranges are not reported, since discordance with absolute values may lead to misinterpretation of CBC data. Current Interpretive Data was last revised on 2017. Basophil pct 0.5 % [facility] Comment: Interpretive Data Percent cell count reference ranges are not reported, since discordance with absolute values may lead to misinterpretation of CBC data. Current Interpretive Data was last revised on 2017. Blood 08/23/2024 12:3 3 AM CDT 08/23/2024 1:29 AM CDT Petra Jarvis MD LAB BLOOD ORDERABLES Final Result [facility] [address] [place] [address] * (ABNORMAL) CBC with auto differential (08/23/2024 12:33 AM CDT) [facility] WBC 9.3 3.8 - 9.9 K/cumm Hgb 11.3(L) 11.9 - 15.5 g/dL [facility] Hct 34.5(L) 35.6 - 45.5 % [facility] Plt 244 150 - 400 K/cumm [facility] MPV 11.3 9.1 - 12.3 fL [facility] RBC 3.65(L) 3.90 - 5.20 M/cumm [facility] MCV 94.5 81.3 - 96.4 fL [facility] MCH 31.0 27.1 - 33.3 pg [facility] MCHC 32.8 32.3 - 35.7 g/dL [facility] RDW CV 13.0 11.1 - 14.9 % [facility] RDW SD 45.1 35.7 - 48.1 fL [facility] NRBC abs 0.00 0.00 - 0.01 K/cumm [facility] Blood 08/23/2024 12:3 3 AM CDT 08/23/2024 1:29 AM CDT us Petra Jarvis MD LAB BLOOD ORDERABLES Final Result [facility] [address] [employer] [place], [place] [id number] * Magnesium (08/23/2024 12:33 AM CDT) Pathologist [facility] Magnesium 1.9 1.4 - 2.5 mg/dL Blood 08/23/2024 12:3 3 AM CDT 08/23/2024 1:29 AM CDT Petra Jarvis MD LAB BLOOD ORDERABLES Final Result Performing Organization Address City/[facility]/ZIP Co de Phone Number [facility] [address] [place] [address] * (ABNORMAL) Renal function panel (08/23/2024 12:33 AM CDT) Sodium 144 135 - 145 mmol/L Potassium, pl 4.0 3.3 - 4.9 mmol/L [facility] Chloride 109 97 - 110 mmol/L [facility] CO2 21(L) 22 - 32 mmol/L [facility] Anion gap 14 2 - 15 mmol/L [facility] BUN 7 6 - 25 mg/dL [facility] Creatinine 0.53(L) 0.60 - 1.10 mg/dL [facility] Glucose 102 70 - 199 mg/dL [facility] Comment: Interpretive Data Fasting glucose >/= [...] 2022. Calcium 8.6 8.5 - 10.3 mg/dL [facility] Phosphorus, pl 2.1(L) 2.3 - 4.5 mg/dL [facility] Albumin 3.5 3.5 - 5.0 g/dL [facility] Blood 08/23/2024 12:3 3 AM CDT 08/23/2024 1:29 AM CDT Petra Jarvis MD LAB BLOOD ORDERABLES Final Result Performing Organization Address City/[facility]/ZIP Co de Phone Number [facility] [address] [place] [address] * POCT glucose (08/22/2024 12:44 PM CDT) Glucose, POC 96 70 - 199 mg/dL Comment: For Glucose values <35 mg/dl when Hematocrit is >60 mg/dl,the test may not accurately detect significant hypoglycemia,and testing in the Laboratory should be considered if clinically indicated. POC Performer [phone] [facility] Blood 08/22/2024 12:4 4 PM CDT 08/22/2024 12:44 PM CDT us Petra Jarvis MD LAB POCT ORDERABLES - HERMINIO CE Final Result Performing Organization Address [facility]/ZIP Co de Phone Number [facility] [address] [facility] [place] [address] * POCT glucose (08/22/2024 3:01 AM CDT) Glucose, POC 75 70 - 199 mg/dL Comment: For Glucose values <35 mg/dl when Hematocrit is >60 mg/dl,the test may not accurately detect significant hypoglycemia,and testing in the Laboratory should be considered if clinically indicated. POC Performer [phone] [facility] Blood 08/22/2024 3:01 AM CDT 08/22/2024 3:01 AM CDT us Dann Burns MD LAB POCT ORDERABLES - DE VICE Final Result Performing Organization Address City/[facility]/ZIP Co de Phone Number [facility] [address] [facility] [place] [address] * eGFR (08/22/2024 12:53 AM CDT) eGFR [...] MD LAB BLOOD ORDERABLES Fin al Result [facility] [address] Department [place] [address] * (ABNORMAL) Differential, auto (08/22/2024 12:53 AM CDT) Neutrophil abs 7.7(H) 1.5 - 6.5 K/cumm Imm gran abs 0.1 0.0 - 0.1 K/cumm [facility] Lymphocyte abs 2.4 0.8 - 3.3 K/cumm [facility] Monocyte abs 1.2(H) 0.2 - 0.8 K/cumm [facility] Eosinophil abs 0.0 0.0 - 0.5 K/cumm [facility] Basophil abs 0.0 0.0 - 0.1 K/cumm [facility] Neutrophil pct 67.7 % [facility] Comment: Interpretive Data Percent cell count reference ranges are not reported, since discordance with absolute values may lead to misinterpretation of CBC data. Current Interpretive Data was last revised on 2017. Imm gran pct 0.4 % [facility] Comment: Interpretive Data Percent cell count reference ranges are not reported, since discordance with absolute values may lead to misinterpretation of CBC data. Current Interpretive Data was last revised on 2017. Lymphocyte pct 20.9 % [facility] Comment: Interpretive Data Percent cell count reference ranges are not reported, since discordance with absolute values may lead to misinterpretation of CBC data. Current Interpretive Data was last revised on 2017. Monocyte pct 10.3 % [facility] Comment: Interpretive Data Percent cell count reference ranges are not reported, since discordance with absolute values may lead to misinterpretation of CBC data. Current Interpretive Data was last revised on 2017. Eosinophil pct 0.4 % [facility] Comment: Interpretive Data Percent cell count reference ranges are not reported, since discordance with absolute values may lead to misinterpretation of CBC data. Current Interpretive Data was last revised on 2017. Basophil pct 0.3 % [facility] Comment: Interpretive Data Percent cell count reference ranges are not reported, since discordance with absolute values may lead to misinterpretation of CBC data. Current Interpretive Data was last revised on 2017. Blood 08/22/2024 12:5 3 AM CDT 08/22/2024 1:53 AM CDT Dann Burns MD LAB BLOOD ORDERABLES Fin al Result [facility] [address] Department [place] [address] * (ABNORMAL) CBC with auto differential (08/22/2024 12:53 AM CDT) WBC 11.4(H) 3.8 - 9.9 K/cumm Hgb 11.5(L) 11.9 - 15.5 g/dL [facility] Hct 35.9 35.6 - 45.5 % [facility] Plt 224 150 - 400 K/cumm [facility] MPV 11.3 9.1 - 12.3 fL [facility] RBC 3.77(L) 3.90 - 5.20 M/cumm [facility] MCV 95.2 81.3 - 96.4 fL [facility] MCH 30.5 27.1 - 33.3 pg [facility] MCHC 32.0(L) 32.3 - 35.7 g/dL [facility] RDW CV 13.4 11.1 - 14.9 % [facility] RDW SD 47.3 35.7 - 48.1 fL [facility] NRBC abs 0.00 0.00 - 0.01 K/cumm [facility] Blood 08/22/2024 12:5 3 AM CDT 08/22/2024 1:53 AM CDT Dann Burns MD LAB BLOOD ORDERABLES Fin al Result Performing Organization Address City/[facility]/ZIP Co de Phone Number [facility] [address] [facility] [place] [address] * Phosphorus (08/22/2024 12:53 AM CDT) Phosphorus, pl 2.8 2.3 - 4.5 mg/dL Blood 08/22/2024 12:5 3 AM CDT 08/22/2024 1:52 AM CDT Dann Burns MD LAB BLOOD ORDERABLES Fin al Result Performing Organization Address [facility]/RUST Co de Phone Number [facility] [address] [facility] [place] [address] * Magnesium (08/22/2024 12:53 AM CDT) Magnesium 1.9 1.4 - 2.5 mg/dL Blood 08/22/2024 12:5 3 AM CDT 08/22/2024 1:52 AM CDT Dann Burns MD LAB BLOOD ORDERABLES Fin al Result Performing Organization Address [facility]/RUST Co de Phone Number [facility] [address] [place] [address] * (ABNORMAL) Comprehensive metabolic panel (08/22/2024 12:53 AM CDT) Sodium 138 135 - 145 mmol/L Potassium, pl 4.0 3.3 - 4.9 mmol/L [facility] Chloride 103 97 - 110 mmol/L [facility] CO2 20(L) 22 - 32 mmol/L [facility] Anion gap 15 2 - 15 mmol/L [facility] BUN 13 6 - 25 mg/dL [facility] Creatinine 0.59(L) 0.60 - 1.10 mg/dL [facility] Glucose 65(L) 70 - 199 mg/dL [facility] Comment: Interpretive Data Fasting glucose >/= [...] 2022. Calcium 8.9 8.5 - 10.3 mg/dL [facility] Bilirubin, total 0.4 0.1 - 1.2 mg/dL [facility] Protein, pl 6.2(L) 6.5 - 8.5 g/dL [facility] Albumin 3.5 3.5 - 5.0 g/dL [facility] Alk phos 62 40 - 130 Units/L [facility] ALT 22 7 - 45 Units/L [facility] AST 18 10 - 45 Units/L [facility] Blood 08/22/2024 12:5 3 AM CDT 08/22/2024 1:52 AM CDT us Dann Burns MD LAB BLOOD ORDERABLES Fin al Result [facility] [address] Department [place] [address] * CT Abdomen Pelvis W Contrast (08/21/2024 [...] organism identification may be performed using the Publicate Blood Culture Identification panel. This assay detects microbial DNA in a blood culture broth. This assay has been cleared by the [place] Food and Drug Administration and its performance characteristics have been verified by the [facility]. Interpretive data was last revised on July 03, 2022. Belle [facility] LAB MICROBIOLOGY - GENERAL OR DERABLES Final Result Performing Organization Address [facility]/ZIP Co de Phone Number [facility] [address] [place] [address] * Blood culture Blood (08/21/2024 10:59 AM CDT) Report Final Report: No growth Blood 08/21/2024 10:5 9 AM CDT 08/21/2024 11:25 AM CDT Narrative [facility] - 08/26/2024 1:01 PM CDT Collection->Peripheral Interpretive [...] organism identification may be performed using the Publicate Blood Culture Identification panel. This assay detects microbial DNA in a blood culture broth. This assay has been cleared by the [place] Food and Drug Administration and its performance characteristics have been verified by the [facility]. Interpretive data was last revised on July 03, 2022. Belle [facility] LAB MICROBIOLOGY - GENERAL OR DERABLES Final Result Performing Organization Address [facility]/RUST Co de Phone Number [facility] [address] [place] [address] * Sepsis Lactate w/ Reflex (08/21/2024 10:20 AM CDT) Sepsis Lactate 0.9 0.7 - 2.0 mmol/L Blood 08/21/2024 10:2 0 AM CDT 08/21/2024 10:26 AM CDT Akbar Mcdaniel MD LAB BLOOD ORDERABLES Final Resul t Performing Organization Address [facility]/RUST Co de Phone Number [facility] [address] [place] [address] * eGFR (08/21/2024 10:20 AM CDT) Pathologist [facility] eGFR 87 >=60 mL/min/1. 73 m2 Comment: [...] MD LAB BLOOD ORDERABLES Final Resul t [facility] [address] Department [place] [address] * (ABNORMAL) CBC with auto differential (08/21/2024 10:20 AM CDT) [facility] WBC 16.5(H) 3.8 - 9.9 K/cumm Hgb 12.8 11.9 - 15.5 g/dL [facility] Hct 38.9 35.6 - 45.5 % [facility] Plt 268 150 - 400 K/cumm [facility] MPV 10.3 9.1 - 12.3 fL [facility] RBC 4.16 3.90 - 5.20 M/cumm [facility] MCV 93.5 81.3 - 96.4 fL [facility] MCH 30.8 27.1 - 33.3 pg [facility] MCHC 32.9 32.3 - 35.7 g/dL [facility] RDW CV 13.2 11.1 - 14.9 % [facility] RDW SD 45.5 35.7 - 48.1 fL [facility] NRBC abs 0.00 0.00 - 0.01 K/cumm [facility] Blood 08/21/2024 10:2 0 AM CDT 08/21/2024 10:28 AM CDT us Akbar Mcdaniel MD LAB BLOOD ORDERABLES Final Resul t [facility] [address] Department [place] [address] * (ABNORMAL) Manual Differential (08/21/2024 10:20 AM CDT) Differential Manual Cells Counted 115 [facility] Neutrophil abs 12.0(H) 1.5 - 6.5 K/cumm [facility] Imm gran abs 0.3(H) 0.0 - 0.1 K/cumm [facility] Lymphocyte abs 2.7 0.8 - 3.3 K/cumm [facility] Monocyte abs 1.2(H) 0.2 - 0.8 K/cumm [facility] Basophil abs 0.3(H) 0.0 - 0.1 K/cumm [facility] Neutrophil pct 73.0 % [facility] Comment: Interpretive Data Percent cell count reference ranges are not reported, since discordance with absolute values may lead to misinterpretation of CBC data. Current Interpretive Data was last revised on 2017. Lymphocyte pct 16.5 % [facility] Comment: Interpretive Data Percent cell count reference ranges are not reported, since discordance with absolute values may lead to misinterpretation of CBC data. Current Interpretive Data was last revised on 2017. Monocyte pct 7.0 % [facility] Comment: Interpretive Data Percent cell count reference ranges are not reported, since discordance with absolute values may lead to misinterpretation of CBC data. Current Interpretive Data was last revised on 2017. Basophil pct 1.7 % [facility] Comment: Interpretive Data Percent cell count reference ranges are not reported, since discordance with absolute values may lead to misinterpretation of CBC data. Current Interpretive Data was last revised on 2017. Metamyelocyte pct 0.9(H) 0.0 - 0.0 % [facility] Myelocyte pct 0.9(H) 0.0 - 0.0 % [facility] RBC morphology Normal [facility] Morphology scrn See Comment [facility] Comment:PLT: Platelet morpho logy normal Blood 08/21/2024 10:2 0 AM CDT 08/21/2024 10:28 AM CDT Akbar Mcdaniel MD LAB BLOOD ORDERABLES Final Resul t Performing Organization Address City/[facility]/ZIP Co de Phone Number [facility] [address] [place] [address] * Type and screen (08/21/2024 10:20 AM CDT) ABO Rh A Positive Linda, indirect Negative [facility] Blood 08/21/2024 10:2 0 AM CDT 08/21/2024 10:33 AM CDT Narrative [facility] - 08/21/2024 11:12 AM CDT Has the patient had Daratumumab or Isatuximab in the past 6 months?->Unknown [facility] LAB BLOOD BANK TEST ORDERABLE S Final Result [facility] [address] [place] [address] * (ABNORMAL) Comprehensive metabolic panel (08/21/2024 10:20 AM CDT) Sodium 137 135 - 145 mmol/L Potassium, pl 4.3 3.3 - 4.9 mmol/L [facility] Chloride 100 97 - 110 mmol/L [facility] CO2 20(L) 22 - 32 mmol/L [facility] Anion gap 17(H) 2 - 15 mmol/L [facility] BUN 13 6 - 25 mg/dL [facility] Creatinine 0.74 0.60 - 1.10 mg/dL [facility] Glucose 107 70 - 199 mg/dL [facility] Comment: Interpretive Data Fasting glucose >/= [...] 2022. Calcium 9.2 8.5 - 10.3 mg/dL [facility] Bilirubin, total 0.4 0.1 - 1.2 mg/dL [facility] Protein, pl 7.1 6.5 - 8.5 g/dL [facility] Albumin 3.9 3.5 - 5.0 g/dL [facility] Alk phos 69 40 - 130 Units/L [facility] ALT 31 7 - 45 Units/L [facility] AST 36 10 - 45 Units/L [facility] Blood 08/21/2024 10:2 0 AM CDT 08/21/2024 10:27 AM CDT us Akbar Mcdaniel MD LAB BLOOD ORDERABLES Final Resul t [facility] [address] Department [place] [address] * ECG 12 lead (08/21/2024 10:08 AM CDT) 08/21/2024 10:0 8 AM CDT Narrative [facility] - 08/21/2024 10:02 PM CDT Vent Rate: 69 bpm RR Interval: 859 msec [place] Interval: 152 msec QRS Duration: 102 msec QT Interval: 380 msec QTC Interval: 400 msec P-R-T [place]: 57 - -3 - 34 degrees IMPRESSION: SINUS RHYTHM MINIMAL VOLTAGE CRITERIA FOR LVH, CONSIDER NORMAL VARIANT [MEETS CRITERIA IN ONE OF: R(aVL), S(V1), R(V5), R(V5/V6)+S(V1)] MINIMAL ST DEPRESSION [0.025+ mV ST DEPRESSION] BORDERLINE ECG Electronically Signed By: Adolfo Zafar MD PhD Akbar Mcdaniel MD ECG ORDERABLES Final Result [facility] from Last 3 Months Insurance [facility]/PPO Address: [place] [address] [facility]/PPO Address: [address] [address] [place] [address] [place] [address] [facility] [employer] [facility] H[facility]/PPO Address: [address] [address] [place] [id number] Advance Directives For more information, please contact: [phone] * Full Code (Latest Code Status on File) Date Activated Date Inactivated Comments 08/21/2024 3:14 PM 08/23/2024 6:43 PM Care Teams Drywall Stripper Relationship Specialty Start Date End Date Twyla Song MD PCP - General Family Medicine 06/02/18
--- OUTSIDE RECORDS SUMMARY | 2024-09-20 07:58 | XMS_ITS | Clinical Summary ---
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 Assessment & Plan (05/29/2023 10:03 PM RADIOCHEMICAL TECHNICIAN): Bilateral upper eyelid ptosis with symptomatic visual [...] 10/27/2018 Assessment & Plan (04/05/2024 1:10 PM RADIOCHEMICAL TECHNICIAN): Large phys CDR both eyes (OU) - [...] 2018 Assessment & Plan (04/05/2024 1:10 PM RADIOCHEMICAL TECHNICIAN): NVS, monitor Assessment & Plan (04/02/2023 9:41 AM CDT): NVS, monitor Assessment & Plan (02/28/2021 4:43 PM CDT): NVS, monitor Assessment & Plan (10/27/2018 11:23 AM CDT): Not visually significant, monitor Lipoma of neck 06/25/2018 Overview (06/25/2018): Added automatically from request for surgery [id number] Heart murmur 10/17/2013 Encounters Date Type Department Care Team Description 08/22/2024 Telephone [facility] [address] [place] [address] Leilani Garza, OD 08/21/2024 10:05 AM CDT - 08/23/2024 2:42 PM CDT Hospital Encounter [facility] [address] [place] [address] Akbar Mcdaniel MD Dehaan, MD [...] on file Legal Sex Female 12:28 PM RADIOCHEMICAL TECHNICIAN Gender Identity Female 07/03/2023 8:53 AM RADIOCHEMICAL TECHNICIAN Sexual Orientation Not on file Obstetrics History [...] Jarvis MD LAB BLOOD ORDERABLES Final Result [facility] [address] Department of Laboratories Center [place], [place] [id number] * (ABNORMAL) Differential, auto (08/23/2024 12:33 AM CDT) Neutrophil abs 5.6 1.5 - 6.5 K/cumm Imm gran abs 0.0 0.0 - 0.1 K/cumm [facility] Lymphocyte abs 2.4 0.8 - 3.3 K/cumm [facility] Monocyte abs 1.0(H) 0.2 - 0.8 K/cumm [facility] Eosinophil abs 0.1 0.0 - 0.5 K/cumm [facility] Basophil abs 0.1 0.0 - 0.1 K/cumm [facility] Neutrophil pct 60.7 % [facility] Comment: Interpretive Data Percent cell count reference ranges are not reported, since discordance with absolute values may lead to misinterpretation of CBC data. Current Interpretive Data was last revised on 2017. Imm gran pct 0.2 % [facility] Comment: Interpretive Data Percent cell count reference ranges are not reported, since discordance with absolute values may lead to misinterpretation of CBC data. Current Interpretive Data was last revised on 2017. Lymphocyte pct 26.2 % [facility] Comment: Interpretive Data Percent cell count reference ranges are not reported, since discordance with absolute values may lead to misinterpretation of CBC data. Current Interpretive Data was last revised on 2017. Monocyte pct 10.9 % [facility] Comment: Interpretive Data Percent cell count reference ranges are not reported, since discordance with absolute values may lead to misinterpretation of CBC data. Current Interpretive Data was last revised on 2017. Eosinophil pct 1.5 % [facility] Comment: Interpretive Data Percent cell count reference ranges are not reported, since discordance with absolute values may lead to misinterpretation of CBC data. Current Interpretive Data was last revised on 2017. Basophil pct 0.5 % [facility] Comment: Interpretive Data Percent cell count reference ranges are not reported, since discordance with absolute values may lead to misinterpretation of CBC data. Current Interpretive Data was last revised on 2017. Blood 08/23/2024 12:3 3 AM CDT 08/23/2024 1:29 AM CDT us Petra Jarvis MD LAB BLOOD ORDERABLES Final Result [facility] [address] Department [place] [address] * (ABNORMAL) CBC with auto differential (08/23/2024 12:33 AM CDT) WBC 9.3 3.8 - 9.9 K/cumm Hgb 11.3(L) 11.9 - 15.5 g/dL [facility] Hct 34.5(L) 35.6 - 45.5 % [facility] Plt 244 150 - 400 K/cumm [facility] MPV 11.3 9.1 - 12.3 fL [facility] RBC 3.65(L) 3.90 - 5.20 M/cumm [facility] MCV 94.5 81.3 - 96.4 fL [facility] MCH 31.0 27.1 - 33.3 pg [facility] MCHC 32.8 32.3 - 35.7 g/dL [facility] RDW CV 13.0 11.1 - 14.9 % [facility] RDW SD 45.1 35.7 - 48.1 fL [facility] NRBC abs 0.00 0.00 - 0.01 K/cumm [facility] Blood 08/23/2024 12:3 3 AM CDT 08/23/2024 1:29 AM CDT Petra Jarvis MD LAB BLOOD ORDERABLES Final Result [facility] [address] Department [place] [address] * Magnesium (08/23/2024 12:33 AM CDT) [facility] Magnesium 1.9 1.4 - 2.5 mg/dL Blood 08/23/2024 12:3 3 AM CDT 08/23/2024 1:29 AM CDT Petra Jarvis MD LAB BLOOD ORDERABLES Final Result Performing Organization Address City/[facility]/ZIP Co de Phone Number [facility] [address] Department [place] [address] * (ABNORMAL) Renal function panel (08/23/2024 12:33 AM CDT) Pathologist [facility] Sodium 144 135 - 145 mmol/L Potassium, pl 4.0 3.3 - 4.9 mmol/L [facility] Chloride 109 97 - 110 mmol/L [facility] CO2 21(L) 22 - 32 mmol/L [facility] Anion gap 14 2 - 15 mmol/L [facility] BUN 7 6 - 25 mg/dL [facility] Creatinine 0.53(L) 0.60 - 1.10 mg/dL [facility] Glucose 102 70 - 199 mg/dL [facility] Comment: Interpretive Data Fasting glucose [...] 2022. Calcium 8.6 8.5 - 10.3 mg/dL [facility] Phosphorus, pl 2.1(L) 2.3 - 4.5 mg/dL [facility] Albumin 3.5 3.5 - 5.0 g/dL [facility] Blood 08/23/2024 12:3 3 AM CDT 08/23/2024 1:29 AM CDT us Petra Jarvis MD LAB BLOOD ORDERABLES Final Result [facility] [address] [place] [address] * POCT glucose (08/22/2024 12:44 PM CDT) [facility] Glucose, POC 96 70 - 199 mg/dL Comment: For Glucose values <35 mg/dl when Hematocrit is >60 mg/dl,the test may not accurately detect significant hypoglycemia,and testing in the Laboratory should be considered if clinically indicated. POC Performer [phone] [facility] Blood 08/22/2024 12:4 4 PM CDT 08/22/2024 12:44 PM CDT Petra Jarvis MD LAB POCT ORDERABLES - HERMINIO CE Final Result [facility] [address] Department [employer] [place] [address] * POCT glucose (08/22/2024 3:01 AM CDT) Glucose, POC 75 70 - 199 mg/dL Comment: For Glucose values <35 mg/dl when Hematocrit is >60 mg/dl,the test may not accurately detect significant hypoglycemia,and testing in the Laboratory should be considered if clinically indicated. POC Performer [phone] [facility] Blood 08/22/2024 3:01 AM CDT 08/22/2024 3:01 AM CDT Dann Burns MD LAB POCT ORDERABLES - DE VICE Final Result [facility] [address] Department [place] [address] * eGFR (08/22/2024 12:53 AM CDT) Pathologist [facility] eGFR >90 >=60 mL/min/1. 73 m2 Comment: [...] MD LAB BLOOD ORDERABLES Fin al Result [facility] [address] Department [place] [address] * (ABNORMAL) Differential, auto (08/22/2024 12:53 AM CDT) Neutrophil abs 7.7(H) 1.5 - 6.5 K/cumm Imm gran abs 0.1 0.0 - 0.1 K/cumm [facility] Lymphocyte abs 2.4 0.8 - 3.3 K/cumm [facility] Monocyte abs 1.2(H) 0.2 - 0.8 K/cumm [facility] Eosinophil abs 0.0 0.0 - 0.5 K/cumm [facility] Basophil abs 0.0 0.0 - 0.1 K/cumm [facility] Neutrophil pct 67.7 % [facility] Comment: Interpretive Data Percent cell count reference ranges are not reported, since discordance with absolute values may lead to misinterpretation of CBC data. Current Interpretive Data was last revised on 2017. Imm gran pct 0.4 % [facility] Comment: Interpretive Data Percent cell count reference ranges are not reported, since discordance with absolute values may lead to misinterpretation of CBC data. Current Interpretive Data was last revised on 2017. Lymphocyte pct 20.9 % [facility] Comment: Interpretive Data Percent cell count reference ranges are not reported, since discordance with absolute values may lead to misinterpretation of CBC data. Current Interpretive Data was last revised on 2017. Monocyte pct 10.3 % [facility] Comment: Interpretive Data Percent cell count reference ranges are not reported, since discordance with absolute values may lead to misinterpretation of CBC data. Current Interpretive Data was last revised on 2017. Eosinophil pct 0.4 % [facility] Comment: Interpretive Data Percent cell count reference ranges are not reported, since discordance with absolute values may lead to misinterpretation of CBC data. Current Interpretive Data was last revised on 2017. Basophil pct 0.3 % [facility] Comment: Interpretive Data Percent cell count reference ranges are not reported, since discordance with absolute values may lead to misinterpretation of CBC data. Current Interpretive Data was last revised on 2017. Blood 08/22/2024 12:5 3 AM CDT 08/22/2024 1:53 AM CDT Dann Burns MD LAB BLOOD ORDERABLES Fin al Result Performing Organization Address City/[facility]/ZIP Co de Phone Number [facility] [address] [place] [address] * (ABNORMAL) CBC with auto differential (08/22/2024 12:53 AM CDT) WBC 11.4(H) 3.8 - 9.9 K/cumm Hgb 11.5(L) 11.9 - 15.5 g/dL [facility] Hct 35.9 35.6 - 45.5 % [facility] Plt 224 150 - 400 K/cumm [facility] MPV 11.3 9.1 - 12.3 fL [facility] RBC 3.77(L) 3.90 - 5.20 M/cumm [facility] MCV 95.2 81.3 - 96.4 fL [facility] MCH 30.5 27.1 - 33.3 pg [facility] MCHC 32.0(L) 32.3 - 35.7 g/dL [facility] RDW CV 13.4 11.1 - 14.9 % [facility] RDW SD 47.3 35.7 - 48.1 fL [facility] NRBC abs 0.00 0.00 - 0.01 K/cumm [facility] Blood 08/22/2024 12:5 3 AM CDT 08/22/2024 1:53 AM CDT Dann Burns MD LAB BLOOD ORDERABLES Fin al Result Performing Organization Address City/[facility]/ZIP Co de Phone Number [facility] [address] [place] [address] * Phosphorus (08/22/2024 12:53 AM CDT) [facility] Phosphorus, pl 2.8 2.3 - 4.5 mg/dL Blood 08/22/2024 12:5 3 AM CDT 08/22/2024 1:52 AM CDT Dann Burns MD LAB BLOOD ORDERABLES Fin al Result Performing Organization Address [facility] Co de Phone Number [facility] [address] Department [place] [address] * Magnesium (08/22/2024 12:53 AM CDT) [facility] Magnesium 1.9 1.4 - 2.5 mg/dL Blood 08/22/2024 12:5 3 AM CDT 08/22/2024 1:52 AM CDT Dann Burns MD LAB BLOOD ORDERABLES Fin al Result Performing Organization Address [facility] de Phone Number [facility] [address] [facility] [place] [address] * (ABNORMAL) Comprehensive metabolic panel (08/22/2024 12:53 AM CDT) [facility] Sodium 138 135 - 145 mmol/L Potassium, pl 4.0 3.3 - 4.9 mmol/L [facility] Chloride 103 97 - 110 mmol/L [facility] CO2 20(L) 22 - 32 mmol/L [facility] Anion gap 15 2 - 15 mmol/L [facility] BUN 13 6 - 25 mg/dL [facility] Creatinine 0.59(L) 0.60 - 1.10 mg/dL [facility] Glucose 65(L) 70 - 199 mg/dL [facility] Comment: Interpretive Data Fasting glucose [...] 2022. Calcium 8.9 8.5 - 10.3 mg/dL [facility] Bilirubin, total 0.4 0.1 - 1.2 mg/dL [facility] Protein, pl 6.2(L) 6.5 - 8.5 g/dL [facility] Albumin 3.5 3.5 - 5.0 g/dL [facility] Alk phos 62 40 - 130 Units/L [facility] ALT 22 7 - 45 Units/L [facility] AST 18 10 - 45 Units/L [facility] Blood 08/22/2024 12:5 3 AM CDT 08/22/2024 1:52 AM CDT Dann Burns MD LAB BLOOD ORDERABLES Fin al Result [facility] [address] Department [place] [address] * CT Abdomen Pelvis W Contrast (08/21/2024 [...] Electronically signed by: Sudha Weston M.D. Belle [facility] IMG CT PROCEDURES Final Resul t * Blood culture Blood (08/21/2024 10:59 AM CDT) Report Final Report: No growth Blood 08/21/2024 10:5 9 AM CDT 08/21/2024 11:25 AM CDT Donnell [facility] - 08/26/2024 1:01 PM CDT From a [...] organism identification may be performed using the LatamLeap Blood Culture Identification panel. This assay detects microbial DNA in a blood culture broth. This assay has been cleared by the [place] Food and Drug Administration and its performance characteristics have been verified by the [facility]. Interpretive data was last revised on July 03, 2022. Belle [facility] LAB MICROBIOLOGY - GENERAL OR DERABLES Final Result [facility] [address] Department [place] [address] * Blood culture Blood (08/21/2024 10:59 AM CDT) Report Final Report: No growth Blood 08/21/2024 10:5 9 AM CDT 08/21/2024 11:25 AM CDT Donnell [facility] - 08/26/2024 1:01 PM CDT [...] organism identification may be performed using the LatamLeap Blood Culture Identification panel. This assay detects microbial DNA in a blood culture broth. This assay has been cleared by the [place] Food and Drug Administration and its performance characteristics have been verified by the [facility]. Interpretive data was last revised on July 03, 2022. Belle [facility] LAB MICROBIOLOGY - GENERAL OR DERABLES Final Result Performing Organization Address City/[facility]/ZIP Co de Phone Number [facility] [address] Department [place] [address] * Sepsis Lactate w/ Reflex (08/21/2024 10:20 AM CDT) Pathologist [facility] Sepsis Lactate 0.9 0.7 - 2.0 mmol/L Blood 08/21/2024 10:2 0 AM CDT 08/21/2024 10:26 AM CDT Akbar Mcdaniel MD LAB BLOOD ORDERABLES Final Resul t Performing Organization Address City/[facility]/ZIP Co de Phone Number [facility] [address] Department [employer] [place] [address] * eGFR (08/21/2024 10:20 AM CDT) eGFR [...] ORDERABLES Final Resul t Performing Organization Address City/[facility]/ZIP Co de Phone Number [facility] [address] [place] [address] * (ABNORMAL) CBC with auto differential (08/21/2024 10:20 AM CDT) WBC 16.5(H) 3.8 - 9.9 K/cumm Hgb 12.8 11.9 - 15.5 g/dL [facility] Hct 38.9 35.6 - 45.5 % [facility] Plt 268 150 - 400 K/cumm [facility] MPV 10.3 9.1 - 12.3 fL [facility] RBC 4.16 3.90 - 5.20 M/cumm [facility] MCV 93.5 81.3 - 96.4 fL [facility] MCH 30.8 27.1 - 33.3 pg [facility] MCHC 32.9 32.3 - 35.7 g/dL [facility] RDW CV 13.2 11.1 - 14.9 % [facility] RDW SD 45.5 35.7 - 48.1 fL [facility] NRBC abs 0.00 0.00 - 0.01 K/cumm [facility] Blood 08/21/2024 10:2 0 AM CDT 08/21/2024 10:28 AM CDT Abkar Mcdaniel MD LAB BLOOD ORDERABLES Final Resul t Performing Organization Address City/[facility]/ZIP Co de Phone Number [facility] [address] Department of [employer] [place], [place] [id number] * (ABNORMAL) Manual Differential (08/21/2024 10:20 AM CDT) Differential Manual Cells Counted 115 [facility] Neutrophil abs 12.0(H) 1.5 - 6.5 K/cumm [facility] Imm gran abs 0.3(H) 0.0 - 0.1 K/cumm [facility] Lymphocyte abs 2.7 0.8 - 3.3 K/cumm [facility] Monocyte abs 1.2(H) 0.2 - 0.8 K/cumm [facility] Basophil abs 0.3(H) 0.0 - 0.1 K/cumm [facility] Neutrophil pct 73.0 % [facility] Comment: Interpretive Data Percent cell count reference ranges are not reported, since discordance with absolute values may lead to misinterpretation of CBC data. Current Interpretive Data was last revised on 2017. Lymphocyte pct 16.5 % [facility] Comment: Interpretive Data Percent cell count reference ranges are not reported, since discordance with absolute values may lead to misinterpretation of CBC data. Current Interpretive Data was last revised on 2017. Monocyte pct 7.0 % [facility] Comment: Interpretive Data Percent cell count reference ranges are not reported, since discordance with absolute values may lead to misinterpretation of CBC data. Current Interpretive Data was last revised on 2017. Basophil pct 1.7 % [facility] Comment: Interpretive Data Percent cell count reference ranges are not reported, since discordance with absolute values may lead to misinterpretation of CBC data. Current Interpretive Data was last revised on 2017. Metamyelocyte pct 0.9(H) 0.0 - 0.0 % [facility] Myelocyte pct 0.9(H) 0.0 - 0.0 % [facility] RBC morphology Normal [facility] Morphology scrn See Comment [facility] Comment:PLT: Platelet morpho logy normal Blood 08/21/2024 10:2 0 AM CDT 08/21/2024 10:28 AM CDT us Akbar Mcdaniel MD LAB BLOOD ORDERABLES Final Resul t [facility] [address] Department [place] [address] * Type and screen (08/21/2024 10:20 AM CDT) Pathologist [facility] ABO Rh A Positive Linda, indirect Negative [facility] Blood 08/21/2024 10:2 0 AM CDT 08/21/2024 10:33 AM CDT Narrative [facility] - 08/21/2024 11:12 AM CDT Has the patient had Daratumumab or Isatuximab in the past 6 months?->Unknown Belle [facility] LAB BLOOD BANK TEST ORDERABLE S Final Result [facility] [address] Department [place] [address] * (ABNORMAL) Comprehensive metabolic panel (08/21/2024 10:20 AM CDT) Pathologist [facility] Sodium 137 135 - 145 mmol/L Potassium, pl 4.3 3.3 - 4.9 mmol/L [facility] Chloride 100 97 - 110 mmol/L [facility] CO2 20(L) 22 - 32 mmol/L [facility] Anion gap 17(H) 2 - 15 mmol/L [facility] BUN 13 6 - 25 mg/dL [facility] Creatinine 0.74 0.60 - 1.10 mg/dL [facility] Glucose 107 70 - 199 mg/dL [facility] Comment: Interpretive Data Fasting glucose [...] 2022. Calcium 9.2 8.5 - 10.3 mg/dL [facility] Bilirubin, total 0.4 0.1 - 1.2 mg/dL [facility] Protein, pl 7.1 6.5 - 8.5 g/dL [facility] Albumin 3.9 3.5 - 5.0 g/dL [facility] Alk phos 69 40 - 130 Units/L [facility] ALT 31 7 - 45 Units/L [facility] AST 36 10 - 45 Units/L [facility] Blood 08/21/2024 10:2 0 AM CDT 08/21/2024 10:27 AM CDT Akbar Mcdaniel MD LAB BLOOD ORDERABLES Final Resul t [facility] [address] Department [place] [address] * ECG 12 lead (08/21/2024 10:08 AM CDT) 08/21/2024 10:0 8 AM CDT Narrative [facility] - 08/21/2024 10:02 PM CDT Vent Rate: 69 bpm RR Interval: 859 msec [place] Interval: 152 msec QRS Duration: 102 msec QT Interval: 380 msec QTC Interval: 400 msec P-R-T [place]: 57 - -3 - 34 degrees IMPRESSION: SINUS RHYTHM MINIMAL VOLTAGE CRITERIA FOR LVH, CONSIDER NORMAL VARIANT [MEETS CRITERIA IN ONE OF: R(aVL), S(V1), R(V5), R(V5/V6)+S(V1)] MINIMAL ST DEPRESSION [0.025+ mV ST DEPRESSION] BORDERLINE ECG Electronically Signed By: Adolfo Zafar MD PhD us Akbar Mcdaniel MD ECG ORDERABLES Final Result [facility] [employer] [facility] from Last 3 Months Insurance [facility] CHOICE PLUS [facility] CHOICE PLUS [facility] [place] [address] Advance Directives For more information, please contact: [phone] * Full Code (Latest Code Status on File) Date Activated Date Inactivated Comments 08/21/2024 3:14 PM 08/23/2024 6:43 PM Care Teams Cocoa 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
[2024-09-20 08:10] LABS: Estimated Glomerular Filt Rate > 60
== END 2024-09-20 07:52 | disposition home or self-care (01) ==
PROVIDERS: PCP Family Medicine; Visit Provider Family Medicine
DX: K42.9 Umbilical hernia without obstruction or gangrene (principal); K44.9 Diaphragmatic hernia without obstruction or gangrene; K57.20 Diverticulitis of large intestine with perforation and abscess without bleeding
CPT/HCPCS: 74177; Q9967

== ENCOUNTER 2024-10-27 09:08 | Outpatient (CLI) | payer OTHER, SELFPAY ==
--- OUTSIDE RECORDS SUMMARY | 2024-10-27 09:12 | XMS_ITS | Clinical Summary ---
Author Organization [facility] Address [address] [place] [address] Care Team Providers Care Lead Case Manager Name Role Phone Twyla Song MD Primary [...] (25 mg total) by mouth nightly Active Active Problems Problem Noted Date Diagnosed Date [...] Garza. 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): Bilateral upper eyelid ptosis with symptomatic [...] 10/27/2018 Assessment & Plan (04/05/2024 1:10 PM ELECTRONIC TRAIN CONTROL TECHNICIAN): Large phys CDR both eyes (OU) [...] 2018 Assessment & Plan (04/05/2024 1:10 PM ELECTRONIC TRAIN CONTROL TECHNICIAN): NVS, monitor Assessment & Plan (04/02/2023 9:41 AM CDT): NVS, monitor Assessment & Plan (02/28/2021 4:43 PM CDT): NVS, monitor Assessment & Plan (10/27/2018 11:23 AM CDT): Not visually significant, monitor Lipoma of neck 06/25/2018 Overview (06/25/2018): Added automatically from request for surgery [id number] Heart murmur 10/17/2013 Encounters Date Type Department Care Team Description 08/22/2024 Telephone [facility] Ophthalmology [address] [place] [address] Leilani Garza OD 08/21/2024 10:05 AM CDT - 08/23/2024 2:42 PM CDT Hospital Encounter [facility] [address] [place] [address] Akbar Mcdaniel MD Dehaan, MD [...] on file Legal Sex Female 12:28 PM ELECTRONIC TRAIN CONTROL TECHNICIAN Gender Identity Female 07/03/2023 8:53 AM ELECTRONIC TRAIN CONTROL TECHNICIAN Sexual Orientation Not on file Obstetrics [...] 3:15 PM CDT Height 154.9 cm (5' 1) 08/21/2024 3:15 PM CDT Body Mass Index [...] Jarvis MD LAB BLOOD ORDERABLES Final Result [facility] [address] Department [place] [address] * (ABNORMAL) Differential, auto (08/23/2024 12:33 AM CDT) Neutrophil abs 5.6 1.5 - 6.5 K/cumm Imm gran abs 0.0 0.0 - 0.1 K/cumm [facility] Lymphocyte abs 2.4 0.8 - 3.3 K/cumm [facility] Monocyte abs 1.0(H) 0.2 - 0.8 K/cumm [facility] Eosinophil abs 0.1 0.0 - 0.5 K/cumm [facility] Basophil abs 0.1 0.0 - 0.1 K/cumm [facility] Neutrophil pct 60.7 % [facility] Comment: Interpretive Data Percent cell count reference ranges are not reported, since discordance with absolute values may lead to misinterpretation of CBC data. Current Interpretive Data was last revised on 2017. Imm gran pct 0.2 % [facility] Comment: Interpretive Data Percent cell count reference ranges are not reported, since discordance with absolute values may lead to misinterpretation of CBC data. Current Interpretive Data was last revised on 2017. Lymphocyte pct 26.2 % [facility] Comment: Interpretive Data Percent cell count reference ranges are not reported, since discordance with absolute values may lead to misinterpretation of CBC data. Current Interpretive Data was last revised on 2017. Monocyte pct 10.9 % [facility] Comment: Interpretive Data Percent cell count reference ranges are not reported, since discordance with absolute values may lead to misinterpretation of CBC data. Current Interpretive Data was last revised on 2017. Eosinophil pct 1.5 % [facility] Comment: Interpretive Data Percent cell count reference ranges are not reported, since discordance with absolute values may lead to misinterpretation of CBC data. Current Interpretive Data was last revised on 2017. Basophil pct 0.5 % [facility] Comment: Interpretive Data Percent cell count reference ranges are not reported, since discordance with absolute values may lead to misinterpretation of CBC data. Current Interpretive Data was last revised on 2017. Blood 08/23/2024 12:3 3 AM CDT 08/23/2024 1:29 AM CDT us Petra Jarvis MD LAB BLOOD ORDERABLES Final Result [facility] [address] Department [place] [address] * (ABNORMAL) CBC with auto differential (08/23/2024 12:33 AM CDT) WBC 9.3 3.8 - 9.9 K/cumm Hgb 11.3(L) 11.9 - 15.5 g/dL [facility] Hct 34.5(L) 35.6 - 45.5 % [facility] Plt 244 150 - 400 K/cumm [facility] MPV 11.3 9.1 - 12.3 fL [facility] RBC 3.65(L) 3.90 - 5.20 M/cumm [facility] MCV 94.5 81.3 - 96.4 fL [facility] MCH 31.0 27.1 - 33.3 pg [facility] MCHC 32.8 32.3 - 35.7 g/dL [facility] RDW CV 13.0 11.1 - 14.9 % [facility] RDW SD 45.1 35.7 - 48.1 fL [facility] NRBC abs 0.00 0.00 - 0.01 K/cumm [facility] Blood 08/23/2024 12:3 3 AM CDT 08/23/2024 1:29 AM CDT Petra Jarvis MD LAB BLOOD ORDERABLES Final Result Performing Organization Address City/[facility] Co de Phone Number [facility] [address] [facility] [place] [address] * Magnesium (08/23/2024 12:33 AM CDT) Pathologist [facility] Magnesium 1.9 1.4 - 2.5 mg/dL Blood 08/23/2024 12:3 3 AM CDT 08/23/2024 1:29 AM CDT Petra Jarvis MD LAB BLOOD ORDERABLES Final Result Performing Organization Address [facility] Phone Number [facility] [address] Department [place] [address] * (ABNORMAL) Renal function panel (08/23/2024 12:33 AM CDT) Pathologist [facility] Sodium 144 135 - 145 mmol/L Potassium, pl 4.0 3.3 - 4.9 mmol/L [facility] Chloride 109 97 - 110 mmol/L [facility] CO2 21(L) 22 - 32 mmol/L [facility] Anion gap 14 2 - 15 mmol/L [facility] BUN 7 6 - 25 mg/dL [facility] Creatinine 0.53(L) 0.60 - 1.10 mg/dL [facility] Glucose 102 70 - 199 mg/dL [facility] Comment: Interpretive Data Fasting glucose >/= 126 [...] classification and Diagnosis of Diabetes Diabetes Care 2022; 46: S19-S40. Current interpretive data was last revised 2022. Calcium 8.6 8.5 - 10.3 mg/dL [facility] Phosphorus, pl 2.1(L) 2.3 - 4.5 mg/dL [facility] Albumin 3.5 3.5 - 5.0 g/dL [facility] Blood 08/23/2024 12:3 3 AM CDT 08/23/2024 1:29 AM CDT Petra Jarvis MD LAB BLOOD ORDERABLES Final Result Performing Organization Address City/[facility]/ZIP Co de Phone Number [facility] [address] [employer] [place], [place] [id number] * POCT glucose (08/22/2024 12:44 PM CDT) Glucose, POC 96 70 - 199 mg/dL Comment: For Glucose values <35 mg/dl when Hematocrit is >60 mg/dl,the test may not accurately detect significant hypoglycemia,and testing in the Laboratory should be considered if clinically indicated. POC Performer [id number] [facility] Blood 08/22/2024 12:4 4 PM CDT 08/22/2024 12:44 PM CDT Petra Jarvis MD LAB POCT ORDERABLES - HERMINIO CE Final Result Performing Organization Address [facility]/ZIP Co de Phone Number [facility] [address] [facility] [employer] [place], [place] [id number] * POCT glucose (08/22/2024 3:01 AM CDT) Glucose, POC 75 70 - 199 mg/dL Comment: For Glucose values <35 mg/dl when Hematocrit is >60 mg/dl,the test may not accurately detect significant hypoglycemia,and testing in the Laboratory should be considered if clinically indicated. POC Performer [id number] [facility] Blood 08/22/2024 3:01 AM CDT 08/22/2024 3:01 AM CDT Dann Burns MD LAB POCT ORDERABLES - DE VICE Final Result Performing Organization Address [facility] Co de Phone Number [facility] [address] Department [place] [address] * eGFR (08/22/2024 12:53 AM CDT) eGFR [...] ORDERABLES Fin al Result Performing Organization Address City/[facility]/ZIP Co de Phone Number [facility] [address] Department [place] [address] * (ABNORMAL) Differential, auto (08/22/2024 12:53 AM CDT) Neutrophil abs 7.7(H) 1.5 - 6.5 K/cumm Imm gran abs 0.1 0.0 - 0.1 K/cumm [facility] Lymphocyte abs 2.4 0.8 - 3.3 K/cumm [facility] Monocyte abs 1.2(H) 0.2 - 0.8 K/cumm [facility] Eosinophil abs 0.0 0.0 - 0.5 K/cumm [facility] Basophil abs 0.0 0.0 - 0.1 K/cumm [facility] Neutrophil pct 67.7 % [facility] Comment: Interpretive Data Percent cell count reference ranges are not reported, since discordance with absolute values may lead to misinterpretation of CBC data. Current Interpretive Data was last revised on 2017. Imm gran pct 0.4 % [facility] Comment: Interpretive Data Percent cell count reference ranges are not reported, since discordance with absolute values may lead to misinterpretation of CBC data. Current Interpretive Data was last revised on 2017. Lymphocyte pct 20.9 % [facility] Comment: Interpretive Data Percent cell count reference ranges are not reported, since discordance with absolute values may lead to misinterpretation of CBC data. Current Interpretive Data was last revised on 2017. Monocyte pct 10.3 % [facility] Comment: Interpretive Data Percent cell count reference ranges are not reported, since discordance with absolute values may lead to misinterpretation of CBC data. Current Interpretive Data was last revised on 2017. Eosinophil pct 0.4 % [facility] Comment: Interpretive Data Percent cell count reference ranges are not reported, since discordance with absolute values may lead to misinterpretation of CBC data. Current Interpretive Data was last revised on 2017. Basophil pct 0.3 % [facility] Comment: Interpretive Data Percent cell count reference ranges are not reported, since discordance with absolute values may lead to misinterpretation of CBC data. Current Interpretive Data was last revised on 2017. Blood 08/22/2024 12:5 3 AM CDT 08/22/2024 1:53 AM CDT us Dann Burns MD LAB BLOOD ORDERABLES Fin al Result [facility] [address] Department [place] [address] * (ABNORMAL) CBC with auto differential (08/22/2024 12:53 AM CDT) [facility] WBC 11.4(H) 3.8 - 9.9 K/cumm Hgb 11.5(L) 11.9 - 15.5 g/dL [facility] Hct 35.9 35.6 - 45.5 % [facility] Plt 224 150 - 400 K/cumm [facility] MPV 11.3 9.1 - 12.3 fL [facility] RBC 3.77(L) 3.90 - 5.20 M/cumm [facility] MCV 95.2 81.3 - 96.4 fL [facility] MCH 30.5 27.1 - 33.3 pg [facility] MCHC 32.0(L) 32.3 - 35.7 g/dL [facility] RDW CV 13.4 11.1 - 14.9 % [facility] RDW SD 47.3 35.7 - 48.1 fL [facility] NRBC abs 0.00 0.00 - 0.01 K/cumm [facility] Blood 08/22/2024 12:5 3 AM CDT 08/22/2024 1:53 AM CDT Dann Burns MD LAB BLOOD ORDERABLES Fin al Result Performing Organization Address City/[facility]/ZIP Co de Phone Number [facility] [address] Department [place] [address] * Phosphorus (08/22/2024 12:53 AM CDT) [facility] Phosphorus, pl 2.8 2.3 - 4.5 mg/dL Blood 08/22/2024 12:5 3 AM CDT 08/22/2024 1:52 AM CDT Dann Burns MD LAB BLOOD ORDERABLES Fin al Result [facility] [address] Department [place] [address] * Magnesium (08/22/2024 12:53 AM CDT) [facility] Magnesium 1.9 1.4 - 2.5 mg/dL Blood 08/22/2024 12:5 3 AM CDT 08/22/2024 1:52 AM CDT Dann Burns MD LAB BLOOD ORDERABLES Fin al Result [facility] [address] Department [place] [address] * (ABNORMAL) Comprehensive metabolic panel (08/22/2024 12:53 AM CDT) [facility] Sodium 138 135 - 145 mmol/L Potassium, pl 4.0 3.3 - 4.9 mmol/L [facility] Chloride 103 97 - 110 mmol/L [facility] CO2 20(L) 22 - 32 mmol/L [facility] Anion gap 15 2 - 15 mmol/L [facility] BUN 13 6 - 25 mg/dL [facility] Creatinine 0.59(L) 0.60 - 1.10 mg/dL [facility] Glucose 65(L) 70 - 199 mg/dL [facility] Comment: Interpretive Data Fasting glucose >/= 126 [...] 2022. Calcium 8.9 8.5 - 10.3 mg/dL [facility] Bilirubin, total 0.4 0.1 - 1.2 mg/dL [facility] Protein, pl 6.2(L) 6.5 - 8.5 g/dL [facility] Albumin 3.5 3.5 - 5.0 g/dL [facility] Alk phos 62 40 - 130 Units/L [facility] ALT 22 7 - 45 Units/L [facility] AST 18 10 - 45 Units/L [facility] Blood 08/22/2024 12:5 3 AM CDT 08/22/2024 1:52 AM CDT us Dann Burns MD LAB BLOOD ORDERABLES Fin al Result [facility] [address] Department [place] [address] * CT Abdomen Pelvis W Contrast (08/21/2024 [...] AM CDT 08/21/2024 11:25 AM CDT Narrative [facility] - 08/26/2024 1:01 PM CDT From a [...] organism identification may be performed using the [employer] Blood Culture Identification panel. This assay detects microbial DNA in a blood culture broth. This assay has been cleared by the [facility] Food and Drug Administration and its performance characteristics have been verified by the [facility] Microbiology Laboratory. Interpretive data was last revised on July 03, 2022. Belle [facility] LAB MICROBIOLOGY - GENERAL OR DERABLES Final Result Performing Organization Address City/[facility]/ZIP Co de Phone Number [facility] [address] Department [place] [address] * Blood culture Blood (08/21/2024 10:59 AM CDT) Report Final Report: No growth Blood 08/21/2024 10:5 9 AM CDT 08/21/2024 11:25 AM CDT [facility] - 08/26/2024 1:01 PM CDT Collection->Peripheral Interpretive [...] organism identification may be performed using the [employer] Blood Culture Identification panel. This assay detects microbial DNA in a blood culture broth. This assay has been cleared by the [place] Food and Drug Administration and its performance characteristics have been verified by the [facility]. Interpretive data was last revised on July 03, 2022. Belle [facility] LAB MICROBIOLOGY - GENERAL OR DERABLES Final Result Performing Organization Address City/[facility]/ZIP Co de Phone Number [facility] [address] [facility] [place] [address] * Sepsis Lactate w/ Reflex (08/21/2024 10:20 AM CDT) Sepsis Lactate 0.9 0.7 - 2.0 mmol/L Blood 08/21/2024 10:2 0 AM CDT 08/21/2024 10:26 AM CDT Akbar Mcdaniel MD LAB BLOOD ORDERABLES Final Resul t Performing Organization Address [facility] Co de Phone Number [facility] [address] [facility] [place] [address] * eGFR (08/21/2024 10:20 AM CDT) eGFR [...] ORDERABLES Final Resul t Performing Organization Address City/[facility]/ZIP Co de Phone Number [facility] [address] Department [place] [address] * (ABNORMAL) CBC with auto differential (08/21/2024 10:20 AM CDT) [facility] WBC 16.5(H) 3.8 - 9.9 K/cumm Hgb 12.8 11.9 - 15.5 g/dL [facility] Hct 38.9 35.6 - 45.5 % [facility] Plt 268 150 - 400 K/cumm [facility] MPV 10.3 9.1 - 12.3 fL [facility] RBC 4.16 3.90 - 5.20 M/cumm [facility] MCV 93.5 81.3 - 96.4 fL [facility] MCH 30.8 27.1 - 33.3 pg [facility] MCHC 32.9 32.3 - 35.7 g/dL [facility] RDW CV 13.2 11.1 - 14.9 % [facility] RDW SD 45.5 35.7 - 48.1 fL [facility] NRBC abs 0.00 0.00 - 0.01 K/cumm [facility] Blood 08/21/2024 10:2 0 AM CDT 08/21/2024 10:28 AM CDT us Akbar Mcdaniel MD LAB BLOOD ORDERABLES Final Resul t [facility] [address] Department [place] [address] * (ABNORMAL) Manual Differential (08/21/2024 10:20 AM CDT) [facility] Differential Manual Cells Counted 115 [facility] Neutrophil abs 12.0(H) 1.5 - 6.5 K/cumm [facility] Imm gran abs 0.3(H) 0.0 - 0.1 K/cumm [facility] Lymphocyte abs 2.7 0.8 - 3.3 K/cumm [facility] Monocyte abs 1.2(H) 0.2 - 0.8 K/cumm [facility] Basophil abs 0.3(H) 0.0 - 0.1 K/cumm [facility] Neutrophil pct 73.0 % [facility] Comment: Interpretive Data Percent cell count reference ranges are not reported, since discordance with absolute values may lead to misinterpretation of CBC data. Current Interpretive Data was last revised on 2017. Lymphocyte pct 16.5 % [facility] Comment: Interpretive Data Percent cell count reference ranges are not reported, since discordance with absolute values may lead to misinterpretation of CBC data. Current Interpretive Data was last revised on 2017. Monocyte pct 7.0 % [facility] Comment: Interpretive Data Percent cell count reference ranges are not reported, since discordance with absolute values may lead to misinterpretation of CBC data. Current Interpretive Data was last revised on 2017. Basophil pct 1.7 % [facility] Comment: Interpretive Data Percent cell count reference ranges are not reported, since discordance with absolute values may lead to misinterpretation of CBC data. Current Interpretive Data was last revised on 2017. Metamyelocyte pct 0.9(H) 0.0 - 0.0 % [facility] Myelocyte pct 0.9(H) 0.0 - 0.0 % [facility] RBC morphology Normal [facility] Morphology scrn See Comment [facility] Comment:PLT: Platelet morpho logy normal Blood 08/21/2024 10:2 0 AM CDT 08/21/2024 10:28 AM CDT Akbar Mcdaniel MD LAB BLOOD ORDERABLES Final Resul t [facility] [address] Department [place] [address] * Type and screen (08/21/2024 10:20 AM CDT) ABO Rh A Positive Linda, indirect Negative [facility] Blood 08/21/2024 10:2 0 AM CDT 08/21/2024 10:33 AM CDT Narrative [facility] - 08/21/2024 11:12 AM CDT Has the patient had Daratumumab or Isatuximab in the past 6 months?->Unknown [facility] LAB BLOOD BANK TEST ORDERABLE S Final Result [facility] [address] Department [place] [address] * (ABNORMAL) Comprehensive metabolic panel (08/21/2024 10:20 AM CDT) [facility] Sodium 137 135 - 145 mmol/L Potassium, pl 4.3 3.3 - 4.9 mmol/L [facility] Chloride 100 97 - 110 mmol/L [facility] CO2 20(L) 22 - 32 mmol/L [facility] Anion gap 17(H) 2 - 15 mmol/L [facility] BUN 13 6 - 25 mg/dL [facility] Creatinine 0.74 0.60 - 1.10 mg/dL [facility] Glucose 107 70 - 199 mg/dL [facility] Comment: Interpretive Data Fasting glucose >/= 126 [...] 2022. Calcium 9.2 8.5 - 10.3 mg/dL [facility] Bilirubin, total 0.4 0.1 - 1.2 mg/dL [facility] Protein, pl 7.1 6.5 - 8.5 g/dL [facility] Albumin 3.9 3.5 - 5.0 g/dL [facility] Alk phos 69 40 - 130 Units/L [facility] ALT 31 7 - 45 Units/L [facility] AST 36 10 - 45 Units/L [facility] Blood 08/21/2024 10:2 0 AM CDT 08/21/2024 10:27 AM CDT us Akbar Mcdaniel MD LAB BLOOD ORDERABLES Final Resul t [facility] [address] Department [place] [address] * ECG 12 lead (08/21/2024 10:08 AM CDT) 08/21/2024 10:0 8 AM CDT Narrative [facility] - 08/21/2024 10:02 PM CDT Vent Rate: 69 bpm RR Interval: 859 msec [place] Interval: 152 msec QRS Duration: 102 msec QT Interval: 380 msec QTC Interval: 400 msec P-R-T [place]: 57 - -3 - 34 degrees IMPRESSION: SINUS RHYTHM MINIMAL VOLTAGE CRITERIA FOR LVH, CONSIDER NORMAL VARIANT [MEETS CRITERIA IN ONE OF: R(aVL), S(V1), R(V5), R(V5/V6)+S(V1)] MINIMAL ST DEPRESSION [0.025+ mV ST DEPRESSION] BORDERLINE ECG Electronically Signed By: Adolfo Zafar MD PhD us Akbar Mcdaniel MD ECG ORDERABLES Final Result Performing Organization Address [facility] Co de Phone Number [facility] from Last [place] [address] [facility] [employer] [facility] HMO/PPO Address: [address] [address] [place] [address] [facility] [employer] [facility] HMO/PPO Address: [address] [place] [address] [place] [address] [facility] [employer] [facility] HMO/PPO Address: [address] [place] [address] Advance Directives For more information, please contact: [phone] * Full Code (Latest Code Status on File) Date Activated Date Inactivated Comments 08/21/2024 3:14 PM 08/23/2024 6:43 PM Care Teams Lead Case Manager Relationship Specialty Start Date End Date Twyla Song MD PCP - General Family Medicine 06/02/18
--- OUTSIDE RECORDS SUMMARY | 2024-10-27 09:12 | XMS_ITS | Referral Summary ---
Author Organization [facility] Address [address] [place] [address] Care Team Providers Care Supervisor Filling And Packing Name Role Phone Twyla Song MD Primary Care Provider + Encounters Date Type Department Care Team Description 08/21/2024 10:05 AM CDT - 08/23/2024 2:42 PM CDT Hospital Encounter [facility] [address] [place] [address] Akbar Mcdaniel MD Dehaan, MD Matheus Brown, Petra Gayle MD Perforation of sigmoid colon due to diverticulitis (Primary Dx); Sepsis due to coliform organism (HCC) [A41.59]; Primary hypertension [I10]; Metabolic acidemia [E87.20]; Anemia, unspecified type [D64.9] Discharge Disposition: Discharge to home or self care 08/22/2024 Telephone [facility] Ophthalmology [address] [place] [address] Leilani Garza, OD from Last [...] Garza. Assessment & Plan (05/29/2023 10:03 PM INDUCTION HEATING EQUIPMENT SETTER): Bilateral upper eyelid ptosis with symptomatic visual [...] 10/27/2018 Assessment & Plan (04/05/2024 1:10 PM INDUCTION HEATING EQUIPMENT SETTER): Large phys CDR both eyes (OU) - [...] 2018 Assessment & Plan (04/05/2024 1:10 PM INDUCTION HEATING EQUIPMENT SETTER): NVS, monitor Assessment & Plan (04/02/2023 9:41 AM CDT): NVS, monitor Assessment & Plan (02/28/2021 4:43 PM CDT): NVS, monitor Assessment & Plan (10/27/2018 11:23 AM CDT): Not visually significant, monitor Lipoma of neck 06/25/2018 Overview (06/25/2018): Added automatically from request for surgery [id number] Heart murmur 10/17/2013 Social History Tobacco Use [...] on file Legal Sex Female 12:28 PM INDUCTION HEATING EQUIPMENT SETTER Gender Identity Female 07/03/2023 8:53 AM INDUCTION HEATING EQUIPMENT SETTER Sexual Orientation Not on file Last Filed [...] Jarvis MD LAB BLOOD ORDERABLES Final Result [facility] [address] Department [place] [address] * (ABNORMAL) Differential, auto (08/23/2024 12:33 AM CDT) Pathologist [facility] Neutrophil abs 5.6 1.5 - 6.5 K/cumm Imm gran abs 0.0 0.0 - 0.1 K/cumm [facility] Lymphocyte abs 2.4 0.8 - 3.3 K/cumm [facility] Monocyte abs 1.0(H) 0.2 - 0.8 K/cumm [facility] Eosinophil abs 0.1 0.0 - 0.5 K/cumm [facility] Basophil abs 0.1 0.0 - 0.1 K/cumm [facility] Neutrophil pct 60.7 % [facility] Comment: Interpretive Data Percent cell count reference ranges are not reported, since discordance with absolute values may lead to misinterpretation of CBC data. Current Interpretive Data was last revised on 2017. Imm gran pct 0.2 % [facility] Comment: Interpretive Data Percent cell count reference ranges are not reported, since discordance with absolute values may lead to misinterpretation of CBC data. Current Interpretive Data was last revised on 2017. Lymphocyte pct 26.2 % [facility] Comment: Interpretive Data Percent cell count reference ranges are not reported, since discordance with absolute values may lead to misinterpretation of CBC data. Current Interpretive Data was last revised on 2017. Monocyte pct 10.9 % [facility] Comment: Interpretive Data Percent cell count reference ranges are not reported, since discordance with absolute values may lead to misinterpretation of CBC data. Current Interpretive Data was last revised on 2017. Eosinophil pct 1.5 % [facility] Comment: Interpretive Data Percent cell count reference ranges are not reported, since discordance with absolute values may lead to misinterpretation of CBC data. Current Interpretive Data was last revised on 2017. Basophil pct 0.5 % [facility] Comment: Interpretive Data Percent cell count reference ranges are not reported, since discordance with absolute values may lead to misinterpretation of CBC data. Current Interpretive Data was last revised on 2017. Blood 08/23/2024 12:3 3 AM CDT 08/23/2024 1:29 AM CDT us Petra Jarvis MD LAB BLOOD ORDERABLES Final Result [facility] [address] Department [place] [address] * (ABNORMAL) CBC with auto differential (08/23/2024 12:33 AM CDT) WBC 9.3 3.8 - 9.9 K/cumm Hgb 11.3(L) 11.9 - 15.5 g/dL [facility] Hct 34.5(L) 35.6 - 45.5 % [facility] Plt 244 150 - 400 K/cumm [facility] MPV 11.3 9.1 - 12.3 fL [facility] RBC 3.65(L) 3.90 - 5.20 M/cumm [facility] MCV 94.5 81.3 - 96.4 fL [facility] MCH 31.0 27.1 - 33.3 pg [facility] MCHC 32.8 32.3 - 35.7 g/dL [facility] RDW CV 13.0 11.1 - 14.9 % [facility] RDW SD 45.1 35.7 - 48.1 fL [facility] NRBC abs 0.00 0.00 - 0.01 K/cumm [facility] Blood 08/23/2024 12:3 3 AM CDT 08/23/2024 1:29 AM CDT Petra Jarvis MD LAB BLOOD ORDERABLES Final Result Performing Organization Address City/[facility]/ZIP Co de Phone Number [facility] [address] [employer] [place], [place] [id number] * Magnesium (08/23/2024 12:33 AM CDT) [facility] Magnesium 1.9 1.4 - 2.5 mg/dL Blood 08/23/2024 12:3 3 AM CDT 08/23/2024 1:29 AM CDT Petra Jarvis MD LAB BLOOD ORDERABLES Final Result [facility] [address] [facility] [place] [address] * (ABNORMAL) Renal function panel (08/23/2024 12:33 AM CDT) [facility] Sodium 144 135 - 145 mmol/L Potassium, pl 4.0 3.3 - 4.9 mmol/L [facility] Chloride 109 97 - 110 mmol/L [facility] CO2 21(L) 22 - 32 mmol/L [facility] Anion gap 14 2 - 15 mmol/L [facility] BUN 7 6 - 25 mg/dL [facility] Creatinine 0.53(L) 0.60 - 1.10 mg/dL [facility] Glucose 102 70 - 199 mg/dL [facility] Comment: Interpretive Data Fasting glucose >/= [...] 2022. Calcium 8.6 8.5 - 10.3 mg/dL [facility] Phosphorus, pl 2.1(L) 2.3 - 4.5 mg/dL [facility] Albumin 3.5 3.5 - 5.0 g/dL [facility] Blood 08/23/2024 12:3 3 AM CDT 08/23/2024 1:29 AM CDT Petra Jarvis MD LAB BLOOD ORDERABLES Final Result [facility] [address] Department [place] [address] * POCT glucose (08/22/2024 12:44 PM CDT) [facility] Glucose, POC 96 70 - 199 mg/dL Comment: For Glucose values <35 mg/dl when Hematocrit is >60 mg/dl,the test may not accurately detect significant hypoglycemia,and testing in the Laboratory should be considered if clinically indicated. POC Performer [id number] [facility] Blood 08/22/2024 12:4 4 PM CDT 08/22/2024 12:44 PM CDT Petra Jarvis MD LAB POCT ORDERABLES - HERMINIO CE Final Result [facility] [address] Department [place] [address] * POCT glucose (08/22/2024 3:01 AM CDT) Glucose, POC 75 70 - 199 mg/dL Comment: For Glucose values <35 mg/dl when Hematocrit is >60 mg/dl,the test may not accurately detect significant hypoglycemia,and testing in the Laboratory should be considered if clinically indicated. POC Performer [id number] [facility] Blood 08/22/2024 3:01 AM CDT 08/22/2024 3:01 AM CDT Dann Burns MD LAB POCT ORDERABLES - DE VICE Final Result Performing Organization Address City/[facility]/ZIP Co de Phone Number [facility] [address] [place] [address] * eGFR (08/22/2024 12:53 AM CDT) eGFR [...] MD LAB BLOOD ORDERABLES Fin al Result [facility] [address] Department [place] [address] * (ABNORMAL) Differential, auto (08/22/2024 12:53 AM CDT) Neutrophil abs 7.7(H) 1.5 - 6.5 K/cumm Imm gran abs 0.1 0.0 - 0.1 K/cumm [facility] Lymphocyte abs 2.4 0.8 - 3.3 K/cumm [facility] Monocyte abs 1.2(H) 0.2 - 0.8 K/cumm [facility] Eosinophil abs 0.0 0.0 - 0.5 K/cumm [facility] Basophil abs 0.0 0.0 - 0.1 K/cumm [facility] Neutrophil pct 67.7 % [facility] Comment: Interpretive Data Percent cell count reference ranges are not reported, since discordance with absolute values may lead to misinterpretation of CBC data. Current Interpretive Data was last revised on 2017. Imm gran pct 0.4 % [facility] Comment: Interpretive Data Percent cell count reference ranges are not reported, since discordance with absolute values may lead to misinterpretation of CBC data. Current Interpretive Data was last revised on 2017. Lymphocyte pct 20.9 % [facility] Comment: Interpretive Data Percent cell count reference ranges are not reported, since discordance with absolute values may lead to misinterpretation of CBC data. Current Interpretive Data was last revised on 2017. Monocyte pct 10.3 % [facility] Comment: Interpretive Data Percent cell count reference ranges are not reported, since discordance with absolute values may lead to misinterpretation of CBC data. Current Interpretive Data was last revised on 2017. Eosinophil pct 0.4 % [facility] Comment: Interpretive Data Percent cell count reference ranges are not reported, since discordance with absolute values may lead to misinterpretation of CBC data. Current Interpretive Data was last revised on 2017. Basophil pct 0.3 % [facility] Comment: Interpretive Data Percent cell count reference ranges are not reported, since discordance with absolute values may lead to misinterpretation of CBC data. Current Interpretive Data was last revised on 2017. Blood 08/22/2024 12:5 3 AM CDT 08/22/2024 1:53 AM CDT us Dann Burns MD LAB BLOOD ORDERABLES Fin al Result [facility] [address] Department [place] [address] * (ABNORMAL) CBC with auto differential (08/22/2024 12:53 AM CDT) WBC 11.4(H) 3.8 - 9.9 K/cumm Hgb 11.5(L) 11.9 - 15.5 g/dL [facility] Hct 35.9 35.6 - 45.5 % [facility] Plt 224 150 - 400 K/cumm [facility] MPV 11.3 9.1 - 12.3 fL [facility] RBC 3.77(L) 3.90 - 5.20 M/cumm [facility] MCV 95.2 81.3 - 96.4 fL [facility] MCH 30.5 27.1 - 33.3 pg [facility] MCHC 32.0(L) 32.3 - 35.7 g/dL [facility] RDW CV 13.4 11.1 - 14.9 % [facility] RDW SD 47.3 35.7 - 48.1 fL [facility] NRBC abs 0.00 0.00 - 0.01 K/cumm [facility] Blood 08/22/2024 12:5 3 AM CDT 08/22/2024 1:53 AM CDT Dann Burns MD LAB BLOOD ORDERABLES Fin al Result Performing Organization Address [facility] Co de Phone Number [facility] [address] [facility] [place] [address] * Phosphorus (08/22/2024 12:53 AM CDT) Pathologist [facility] Phosphorus, pl 2.8 2.3 - 4.5 mg/dL Blood 08/22/2024 12:5 3 AM CDT 08/22/2024 1:52 AM CDT Dann Burns MD LAB BLOOD ORDERABLES Fin al Result Performing Organization Address [facility] de Phone Number [facility] [address] [facility] [place] [address] * Magnesium (08/22/2024 12:53 AM CDT) [facility] Magnesium 1.9 1.4 - 2.5 mg/dL Blood 08/22/2024 12:5 3 AM CDT 08/22/2024 1:52 AM CDT Dann Burns MD LAB BLOOD ORDERABLES Fin al Result Performing Organization Address [facility] de Phone Number [facility] [address] [facility] [place] [address] * (ABNORMAL) Comprehensive metabolic panel (08/22/2024 12:53 AM CDT) Pathologist [facility] Sodium 138 135 - 145 mmol/L Potassium, pl 4.0 3.3 - 4.9 mmol/L [facility] Chloride 103 97 - 110 mmol/L [facility] CO2 20(L) 22 - 32 mmol/L [facility] Anion gap 15 2 - 15 mmol/L [facility] BUN 13 6 - 25 mg/dL [facility] Creatinine 0.59(L) 0.60 - 1.10 mg/dL [facility] Glucose 65(L) 70 - 199 mg/dL [facility] Comment: Interpretive Data Fasting glucose >/= [...] 2022. Calcium 8.9 8.5 - 10.3 mg/dL [facility] Bilirubin, total 0.4 0.1 - 1.2 mg/dL [facility] Protein, pl 6.2(L) 6.5 - 8.5 g/dL [facility] Albumin 3.5 3.5 - 5.0 g/dL [facility] Alk phos 62 40 - 130 Units/L [facility] ALT 22 7 - 45 Units/L [facility] AST 18 10 - 45 Units/L [facility] Blood 08/22/2024 12:5 3 AM CDT 08/22/2024 1:52 AM CDT us Dann Burns MD LAB BLOOD ORDERABLES Fin al Result [facility] [address] Department [place] [address] * CT Abdomen Pelvis W Contrast (08/21/2024 [...] CDT 08/21/2024 11:25 AM CDT Narrative [facility] - 08/26/2024 1:01 PM CDT From a [...] organism identification may be performed using the [employer] Blood Culture Identification panel. This assay detects microbial DNA in a blood culture broth. This assay has been cleared by the [place] Food and Drug Administration and its performance characteristics have been verified by the [facility] Microbiology Laboratory. Interpretive data was last revised on July 03, 2022. [facility] LAB MICROBIOLOGY - GENERAL OR DERABLES Final Result [facility] [address] Department [place] [address] * Blood culture Blood (08/21/2024 10:59 AM CDT) Report Final Report: No growth Blood 08/21/2024 10:5 9 AM CDT 08/21/2024 11:25 AM CDT Narrative [facility] - 08/26/2024 1:01 PM CDT [...] organism identification may be performed using the [employer] Blood Culture Identification panel. This assay detects microbial DNA in a blood culture broth. This assay has been cleared by the [place] Food and Drug Administration and its performance characteristics have been verified by the [facility] Microbiology Laboratory. Interpretive data was last revised on July 03, 2022. [facility] LAB MICROBIOLOGY - GENERAL OR DERABLES Final Result Performing Organization Address City/[facility]/ZIP Co de Phone Number [facility] [address] Department of [employer] [place], [place] [id number] * Sepsis Lactate w/ Reflex (08/21/2024 10:20 AM CDT) Pathologist [facility] Sepsis Lactate 0.9 0.7 - 2.0 mmol/L Blood 08/21/2024 10:2 0 AM CDT 08/21/2024 10:26 AM CDT Akbar Mcdaniel MD LAB BLOOD ORDERABLES Final Resul t Performing Organization Address City/[facility]/ZIP Co de Phone Number [facility] [address] [place] [address] * eGFR (08/21/2024 10:20 AM CDT) Pathologist [...] MD LAB BLOOD ORDERABLES Final Resul t [facility] [address] [place] [address] * (ABNORMAL) CBC with auto differential (08/21/2024 10:20 AM CDT) WBC 16.5(H) 3.8 - 9.9 K/cumm Hgb 12.8 11.9 - 15.5 g/dL [facility] Hct 38.9 35.6 - 45.5 % [facility] Plt 268 150 - 400 K/cumm [facility] MPV 10.3 9.1 - 12.3 fL [facility] RBC 4.16 3.90 - 5.20 M/cumm [facility] MCV 93.5 81.3 - 96.4 fL [facility] MCH 30.8 27.1 - 33.3 pg [facility] MCHC 32.9 32.3 - 35.7 g/dL [facility] RDW CV 13.2 11.1 - 14.9 % [facility] RDW SD 45.5 35.7 - 48.1 fL [facility] NRBC abs 0.00 0.00 - 0.01 K/cumm [facility] Blood 08/21/2024 10:2 0 AM CDT 08/21/2024 10:28 AM CDT us Akbar Mcdaniel MD LAB BLOOD ORDERABLES Final Resul t [facility] [address] Department [place] [address] * (ABNORMAL) Manual Differential (08/21/2024 10:20 AM CDT) Differential Manual Cells Counted 115 [facility] Neutrophil abs 12.0(H) 1.5 - 6.5 K/cumm [facility] Imm gran abs 0.3(H) 0.0 - 0.1 K/cumm [facility] Lymphocyte abs 2.7 0.8 - 3.3 K/cumm [facility] Monocyte abs 1.2(H) 0.2 - 0.8 K/cumm [facility] Basophil abs 0.3(H) 0.0 - 0.1 K/cumm [facility] Neutrophil pct 73.0 % [facility] Comment: Interpretive Data Percent cell count reference ranges are not reported, since discordance with absolute values may lead to misinterpretation of CBC data. Current Interpretive Data was last revised on 2017. Lymphocyte pct 16.5 % [facility] Comment: Interpretive Data Percent cell count reference ranges are not reported, since discordance with absolute values may lead to misinterpretation of CBC data. Current Interpretive Data was last revised on 2017. Monocyte pct 7.0 % [facility] Comment: Interpretive Data Percent cell count reference ranges are not reported, since discordance with absolute values may lead to misinterpretation of CBC data. Current Interpretive Data was last revised on 2017. Basophil pct 1.7 % [facility] Comment: Interpretive Data Percent cell count reference ranges are not reported, since discordance with absolute values may lead to misinterpretation of CBC data. Current Interpretive Data was last revised on 2017. Metamyelocyte pct 0.9(H) 0.0 - 0.0 % [facility] Myelocyte pct 0.9(H) 0.0 - 0.0 % [facility] RBC morphology Normal [facility] Morphology scrn See Comment [facility] Comment:PLT: Platelet morpho logy normal Blood 08/21/2024 10:2 0 AM CDT 08/21/2024 10:28 AM CDT Akbar Mcdaniel MD LAB BLOOD ORDERABLES Final Resul t Performing Organization Address City/[facility]/ZIP Co de Phone Number [facility] [address] Department [place] [address] * Type and screen (08/21/2024 10:20 AM CDT) Pathologist [facility] ABO Rh A Positive Linda, indirect Negative [facility] Blood 08/21/2024 10:2 0 AM CDT 08/21/2024 10:33 AM CDT Narrative [facility] - 08/21/2024 11:12 AM CDT Has the patient had Daratumumab or Isatuximab in the past 6 months?->Unknown [facility] LAB BLOOD BANK TEST ORDERABLE S Final Result Performing Organization Address [facility] Co de Phone Number [facility] [address] Department [place] [address] * (ABNORMAL) Comprehensive metabolic panel (08/21/2024 10:20 AM CDT) Sodium 137 135 - 145 mmol/L Potassium, pl 4.3 3.3 - 4.9 mmol/L [facility] Chloride 100 97 - 110 mmol/L [facility] CO2 20(L) 22 - 32 mmol/L [facility] Anion gap 17(H) 2 - 15 mmol/L [facility] BUN 13 6 - 25 mg/dL [facility] Creatinine 0.74 0.60 - 1.10 mg/dL [facility] Glucose 107 70 - 199 mg/dL [facility] Comment: Interpretive Data Fasting glucose >/= [...] 2022. Calcium 9.2 8.5 - 10.3 mg/dL [facility] Bilirubin, total 0.4 0.1 - 1.2 mg/dL [facility] Protein, pl 7.1 6.5 - 8.5 g/dL [facility] Albumin 3.9 3.5 - 5.0 g/dL [facility] Alk phos 69 40 - 130 Units/L [facility] ALT 31 7 - 45 Units/L [facility] AST 36 10 - 45 Units/L [facility] Blood 08/21/2024 10:2 0 AM CDT 08/21/2024 10:27 AM CDT Akbar Mcdaniel MD LAB BLOOD ORDERABLES Final Resul t [facility] [address] Department [place] [address] * ECG 12 lead (08/21/2024 10:08 AM CDT) 08/21/2024 10:0 8 AM CDT Narrative [facility] - 08/21/2024 10:02 PM CDT Vent Rate: 69 bpm RR Interval: 859 msec FL Interval: 152 msec QRS Duration: 102 msec QT Interval: 380 msec QTC Interval: 400 msec P-R-T [place]: 57 - -3 - 34 degrees IMPRESSION: SINUS RHYTHM MINIMAL VOLTAGE CRITERIA FOR LVH, CONSIDER NORMAL VARIANT [MEETS CRITERIA IN ONE OF: R(aVL), S(V1), R(V5), R(V5/V6)+S(V1)] MINIMAL ST DEPRESSION [0.025+ mV ST DEPRESSION] BORDERLINE ECG Electronically Signed By: Adolfo Zafar MD PhD Akbar Mcdaniel MD ECG ORDERABLES Final Result [facility] from Last 3 Months Insurance [facility] CHOICE PLUS [facility] CHOICE PLUS [employer] CHOICE PLUS Advance Directives For more information, please contact: [phone] * Full Code (Latest Code Status on File) Date Activated Date Inactivated Comments 08/21/2024 3:14 PM 08/23/2024 6:43 PM Care Teams Supervisor Filling And Packing Relationship Specialty Start Date End Date Twyla Song MD PCP - General Family Medicine 06/02/18
[2024-10-27 11:21] LABS: Alanine Aminotransferase 34 U/L (6-35); Albumin Level 4.9 g/dL (3.5-5.1); Alkaline Phosphatase 71 U/L (38-126); Anion Gap 9 mmol/L (4-12); Aspartate Amino Transferase 42 U/L (14-36); Bilirubin,Total 0.5 mg/dL (0.2-1.3); Blood Urea Nitrogen 22 mg/dL (7-17); Calcium 9.8 mg/dL (8.4-10.2); Carbon Dioxide 28 mmol/L (22-30); Chloride 102 mmol/L (98-107); Cholesterol 300 mg/dL (0-200); Estimated Glomerular Filt Rate > 60; Glucose 90 mg/dL (65-110); HDL Direct 52 mg/dL; Potassium 4.5 mmol/L (3.4-5.0); Sodium 139 mmol/L (137-145); Triglycerides 163 mg/dL (<150)
[2024-10-27 11:32] LABS: LDL Cholesterol Direct 182 mg/dL
[2024-10-27 11:36] LABS: Hemoglobin A1C 5.7 % (<5.7)
== END 2024-10-27 09:09 | disposition home or self-care (01) ==
LOC: ANHGOSHLAB 09:09
PROVIDERS: PCP Family Medicine; Visit Provider Family Medicine
DX: E78.2 Mixed hyperlipidemia (principal); R73.03 Prediabetes; R73.09 Other abnormal glucose; I10 Essential (primary) hypertension
CPT/HCPCS: 36415; 80053; 80061; 83036

== ENCOUNTER 2025-01-04 12:41 | Outpatient (CLI) | payer OTHER, SELFPAY ==
--- OUTSIDE RECORDS SUMMARY | 2025-01-04 12:47 | XMS_ITS | Clinical Summary ---
Author Organization [facility] Address [address] [place] [address] Care Team Providers Care Draw Frame Runner Name Role Phone Twyla Song MD Primary [...] Garza. Assessment & Plan (05/29/2023 10:03 PM NURSING PROGRAM COORDINATOR): Bilateral upper eyelid ptosis with symptomatic visual [...] 10/27/2018 Assessment & Plan (04/05/2024 1:10 PM NURSING PROGRAM COORDINATOR): Large phys CDR both eyes (OU) - [...] 2018 Assessment & Plan (04/05/2024 1:10 PM NURSING PROGRAM COORDINATOR): NVS, monitor Assessment & Plan (04/02/2023 9:41 AM CDT): NVS, monitor Assessment & Plan (02/28/2021 4:43 PM CDT): NVS, monitor Assessment & Plan (10/27/2018 11:23 AM CDT): Not visually significant, monitor Lipoma of neck 06/25/2018 Overview (06/25/2018): Added automatically from request for surgery [id number] Heart murmur 10/17/2013 Surgical History Surgery Date Site/Laterality Comments COLONOSCOPY 06/01/2022 - 05/31/2023 WISDOM TOOTH EXTRACTION in 30s CHOLECYSTECTOMY 06/01/2018 - 05/31/2019 Medical History Medical History Date Comments Osteoarthritis Lipoma of neck anterior Postmenopausal MVP (mitral valve prolapse) 2007 mild , no symptoms or medications Family [...] on file Legal Sex Female 12:28 PM NURSING PROGRAM COORDINATOR Gender Identity Female 07/03/2023 8:53 AM NURSING PROGRAM COORDINATOR Sexual Orientation Not on file Obstetrics History [...] Vaccine (2 - season) 2024 Influenza Vaccine (#1) 2025 02/18/2020 Fall Risk Assessment 08/23/2025 08/23/2024 DTaP/Tdap/Td Vaccine (2 - Td or Tdap) 10/05/202811/2018 Insurance [facility] CHOICE PLUS [facility] CHOICE PLUS [facility] CHOICE PLUS Advance Directives For more information, please contact: [phone] * Full Code (Latest Code Status on File) Date Activated Date Inactivated Comments 08/21/2024 3:14 PM 08/23/2024 6:43 PM Care Teams Draw Frame Runner Relationship Specialty Start Date End Date Twyla Song MD PCP - General Family Medicine 06/02/18
--- NOTE | 2025-01-04 12:51 | ECHO_ITS ---
Patient Info Name: Cecy Vale Age: 69 years : 1955 Gender: Female Ht: 61 in Wt: 154 lbs BSA: 1.76 m2 HR: 75 bpm BP: 123 / 80 mmHg Heart Rhythm: Sinus Rhythm Technical Quality: Fair Exam Date: 01/04/2025 12:59 PM Patient Status: O Admit Date: 01/04/2025 Exam Type: CA echo doppler color flow Complete two-dimensional, color flow and Doppler transthoracic echocardiogram is performed. Vice President Of Operations: Cecy Rodrigues Attending Provider: Edinson Blake DO Summary 1. Complete two-dimensional, color flow and Doppler transthoracic echocardiogram is performed. 2. Left ventricular chamber dimension is normal. 3. Left ventricular systolic function is normal, estimated at 65-70. 4. The left ventricular diastolic function is grade I diastolic dysfunction. 5. E/e' 11 is mildly elevated. 6. The mitral valve has mild posterior prolapse. 7. There is mild mitral valve regurgitation. 8. No pulmonary hypertension, estimated pulmonary arterial systolic pressure is 18 mmHg. Left Ventricle E/e' 11 is mildly elevated. Left ventricular chamber dimension is normal. Left ventricular systolic function is normal, estimated at 65-70. The left ventricular diastolic function is grade I diastolic dysfunction. Right Ventricle Right ventricular chamber dimension is normal. Right ventricular systolic function is normal and with normal TAPSE 2.6 cm. Left Atria Left atrial chamber dimension is normal. Right Atria Right atrial chamber dimension is normal. Aortic Valve The aortic valve is trileaflet. There is no aortic valve stenosis. There is no aortic valve regurgitation. Pulmonic Valve There is no pulmonic regurgitation. Mitral Valve The mitral valve has mild posterior prolapse. There is no mitral valve stenosis. There is mild mitral valve regurgitation. Tricuspid Valve There is no tricuspid valve regurgitation. No pulmonary hypertension, estimated pulmonary arterial systolic pressure is 18 mmHg. Pericardium/Pleural There is no pericardial effusion. Inferior Vena Cava Normal inferior vena cava with >50% collapse upon inspiration consistent with normal right atrial pressure, 5 mmHg. Aorta The aortic root size at the sinus of Valsalva is normal. Left Ventricular Outflow Tract Name Value Normal LVOT 2D LVOT Diameter 2.0 cm LVOT Doppler LVOT Peak Velocity 114 cm/s LVOT Peak Gradient 5 mmHg LVOT Mean Gradient 2 mmHg LVOT VTI 24 cm LVOT VTI/AV VTI Ratio 0.9 LVOT Stroke Volume 73 ml LVOT CO 4.6 l/min LVOT CI 2.6 l/min/m2 Pulmonic Valve Name Value Normal RVOT Doppler RVOT Peak Velocity 58 cm/s RVOT Peak Gradient 1 mmHg PV Doppler PV Peak Velocity 85 cm/s PV Peak Gradient 3 mmHg Mitral Valve Name Value Normal MV Diastolic Function MV E Peak Velocity 61 cm/s MV A Peak Velocity 81 cm/s MV E/A 0.8 MV Decel Time (PW) 389 ms MV Annular TDI MV E/e' (Septal) 9.7 MV E/e' (Lateral) 12.9 MV E/e' (Average) 11.3 Tricuspid Valve Name Value Normal TV Regurgitation Doppler TR Peak Velocity 180 cm/s TR Peak Gradient 13 mmHg Estimated PAP/RSVP RA Pressure 5 mmHg <=5 PA Systolic Pressure 18 mmHg <36 RV Systolic Pressure 18 mmHg <36 TV Annular TDI TV Lateral Sabrina s' Velocity 16.9 cm/s >=9.5 Aortic Valve Name Value Normal AV Doppler AV Peak Velocity 140 cm/s AV Peak Gradient 8 mmHg AV Mean Gradient 5 mmHg AV VTI 28 cm AV Area (Cont Eq VTI) 2.7 cm2 >=3.0 AV Area (Cont Eq Valeriano) 2.5 cm2 AV DI (Valeriano) 0.82 AV Regurgitation 2D LVOT Area 3.0 cm2 Ventricles Name Value Normal LV Dimensions 2D/MM IVS Diastolic Thickness (2D) 1.1 cm 0.6-1.0 LVID Diastole (2D) 3.2 cm 3.8-5.2 LVIW Diastolic Thickness (2D) 1.0 cm 0.6-0.9 LVID Systole (2D) 2.0 cm 2.2-3.5 LVOT Diameter 2.0 cm LV Mass (2D Cubed) 92.58 g 67.00-162.00 LV Mass Index (2D Cubed) 53 g/m2 43-95 Relative Wall Thickness (2D) 0.62 <=0.42 LV Fractional Shortening/Ejection Fraction 2D/MM LV Fractional Shortening (2D) 39 % 27-45 LV EF (2D Teichholz) 70 % LV Diastolic Volume (4C MOD) 54 ml LV EF (4C MOD) 74 % LV Diastolic Volume (2C MOD) 47 ml LV EF (2C MOD) 73 % LV Diastolic Volume (BP MOD) 50 ml 46-106 LV Diastolic Volume Index (BP MOD) 29 ml/m2 29-61 LV Systolic Volume (BP MOD) 14 ml 14-42 LV Systolic Volume Index (BP MOD) 8 ml/m2 8-24 LV EF (BP MOD) 72 % 54-74 LV Diastolic Length (4C) 7.6 cm LV Systolic Length (4C) 5.8 cm LV Stroke Volume (4C MOD) 40 ml Atria Name Value Normal LA Dimensions LA Volume (4C A-L) 35 ml LA Volume (BP A-L) 45 ml RA Dimensions RA Area (4C) 10.4 cm2 <=18.0 Report Signatures
== END 2025-01-04 12:42 | disposition home or self-care (01) ==
LOC: ANHCARD 12:43
PROVIDERS: PCP Family Medicine; Visit Provider Internal Medicine Cardiovascular Disease
DX: I34.1 Nonrheumatic mitral (valve) prolapse (principal); R93.1 Abnormal findings on diagnostic imaging of heart and coronary circulation
CPT/HCPCS: 93306